=== PATIENT | female | born 1965 | race Caucasian/White ===

== ENCOUNTER 2018-05-23 10:23 | Emergency (ER) | payer BC, SELFPAY ==
[2018-05-23 10:24] VITALS: BP 160/98; PULSE 120; RESP 18; TEMP 36.8; O2SAT 95; BMI 47.0
--- NOTE | 2018-05-23 10:40 | RAD_ITS ---
STUDY: X-RAY CHEST REASON FOR EXAM: Female, 52 years old. Cough and shortness of breath TECHNIQUE: Single AP portable view of the chest. COMPARISON: None. FINDINGS: The lungs are clear and expanded. There is no demonstrated pleural abnormality. There is borderline cardiomegaly. Normal mediastinum and norris. Normal visualized pulmonary arteries. Normal visualized aortic arch and descending thoracic aorta. Normal visualized thoracic spine. Normal visualized ribs, clavicles, and shoulders. There is no demonstrated abnormality of the visualized soft tissue structures of the upper abdomen. RAD/Chest 1 View (Portable) IMPRESSION: Borderline cardiomegaly. Lungs are clear. Electronically Signed: Joe Moreno DO at 11:09 EST Tel , Service support ,
--- NOTE | 2018-05-23 10:41 | ED.VIS.GEN ---
History of Present Illness Chief Complaint: Cold Sx Detail of Chief Complaint: Onset of symptoms Saturday flulike Informant: Patient, Family, Significant Other Onset: - - Onset of symptoms Saturday. Worse today with feeling lightheaded. When asked to define lightheadedness because she denied orthostatic-like symptoms that she stated out of sorts . Context: - - None Timing: Continuous, Intermittent, - - Flulike symptoms constant since Saturday. Feeling out of sorts started today. Quality: Patient not able to quantitate, or describe her symptoms other than flulike Current Severity: Mild Maximum Severity: Moderate Worsened by: Nothing to the patient's knowledge Relieved by: Nothing Associated Symptoms: Subjective fever and respiratory symptoms Narrative: Patient is a middle-aged woman with no sniffing a past medical history. She is a non-smoker. She is a [id number] mom . She presents with rhinorrhea, congestion, postnasal drainage, sore throat, headache and nonproductive cough. She states her cough is worse at night and she feels rattling in her chest. She denies history of asthma. She does report nausea without vomiting diarrhea. She denies black or maroon stool. She denies urologic symptoms. She denies rash. She did not get a flu shot this year. Son was ill with viral-like symptoms before she was. Prior similar symptoms: No Recent Illness/Hospitalization: No Past Medical History - Allergies and Home Meds Allergies/Adverse Reactions: Allergies ibuprofen Allergy (Verified 05/23/18 10:26) Swelling clindamycin Adverse Reaction (Verified 05/23/18 10:26) Other Primary Care Physician: Tia Jalloh DO [Primary Care Provider] - Prior records reviewed: Yes Past Medical History: None Lives: Spouse/ Significant Other, With Family Smoking Status: Never smoker Alcohol: None Drugs: None Review of Systems General: Reports: Chills, Fever, Malaise, Subjective. Denies: Sweats, Weight loss Eyes: Reports: - - She denies photophobia.. Denies: Visual changes - bilaterally, Blurred Vision - bilaterally, Diplopia ENT: Reports: Rhinorrhea, Sore throat. Denies: Bilateral ear pain Cardiovascular: Reports: Palpitations. Denies: Chest pain Respiratory: Reports: Cough. Denies: Dyspnea, Sputum, Dyspnea on exertion, Orthopnea Gastrointestinal: Reports: Nausea. Denies: Abdominal pain, Vomiting, Diarrhea, Melena, Hematochezia Genitourinary: Denies: Dysuria, Hematuria, Frequency Musculoskeletal: Reports: Myalgias, Arthralgias. Denies: Neck pain - She denies neck stiffness Skin: Denies: Rash, Wounds Neurological: Reports: Headache. Denies: Weakness, Parasthesia, Numbness Endocrine: Denies: Polyuria, Polydipsia Hematologic: Denies: Easy bruising, Easy bleeding Physical Exam Vital Signs/Narrative: Vital Signs Temp Pulse Resp BP Pulse Ox 05/23/18 10:24 98.2 F 120 H 18 160/98 H 95 Inital Vital Signs reviewed: Yes General: Well nourished, Well developed, Obese, - - Patient appears ill but not toxic Head: Normocephalic, Atraumatic Eyes: Perrl, EOMI. Negative for: Pale conjunctiva, Scleral icterus ENT: Moist mucous membranes, TM's clear, Nasal congestion. Negative for: Sinus tenderness Neck: Supple, Nontender, No lymphadenopathy Cardiovascular: Regular rhythm, No murmurs, Normal S1, Normal S2, Tachycardia Respiratory: No distress, CTA bilaterally, Chest nontender Abdomen: Soft, Nontender, Nondistended, Normal bowel sounds, No masses Extremities: Nontender, No edema Skin: Normal color, No rash. Negative for: Cyanosis, Diaphoresis Neurological: Alert, Oriented x3, Cranial nerves II-XII grossly intact, Normal Strength, Normal Sensation Psychological: Normal affect Diagnostic/Tx/Re-eval Chest X-Ray - ED: 2 View, Read by ED Physician, Normal, Lungs, Mediastinum, Bony Structures, No Acute Disease PTT of 101. This was obtained because patient urinated 3 times during her ER stay and was drinking glasses of water. - Medical Decision Making With wheezing and cough in non-asthmatic will obtain chest x-ray to assess for infiltrate. She was instructed on how to use an albuterol metered-dose inhaler. We will also treat with p.o. prednisone. Differential viral syndrome, influenza, pneumonia Since chest x-ray is normal and symptoms started only a couple of days ago symptomatic treatment. Antibiotic not indicated per the CDC and the Academy of infectious disease. Patient breathing improved after albuterol. ED Disposition - Plan for ED Patient: Disposition: Home or Assisted Living Diagnosis: Acute asthmatic bronchitis Instructions: ED Bronchitis Asthmatic Referrals: Tia Jalloh, [Primary Care Provider] - 1 Week if not improving Additional Instructions: 2 puffs of the inhaler every 2 hours while awake for the next 2 days then every 2-4 hours as needed. You may be ill for another 7-10 days.
[2018-05-23] MEDS: predniSONE 20 MG Tablet 60 MG PO (11:05)
[2018-05-23 12:05] LABS: Bedside Glucose 110 mg/dL (70-110)
[2018-05-23 12:42] VITALS: BP 146/95; PULSE 103; RESP 16; O2SAT 93
--- NOTE | 2018-05-23 12:42 | ED.RN ---
DISCHARGE INSTRUCTIONS GIVEN TO AND REVIEWED WITH PATIENT, PATIENT DENIES QUESTIONS OR CONCERNS AND VOICES UNDERSTANDING OF DISCHARGE INSTRUCTIONS. PT AMBULATES OUT OF ROOM WITHOUT DIFFICULTY.
== END 2018-05-23 12:43 | disposition home or self-care (01) ==
PROVIDERS: Emergency Provider Emergency Medicine; Family Provider Internal Medicine; PCP Internal Medicine
DX: J45.909 Unspecified asthma, uncomplicated (principal)
CPT/HCPCS: 71045; 82962; 94640; 99284

== ENCOUNTER 2021-05-29 19:47 | Emergency (ER) | payer BC, SELFPAY ==
[2021-05-29 19:48] VITALS: BP 160/105; PULSE 124; RESP 18; TEMP 36.2; O2SAT 98; BMI 39.1
[2021-05-29 20:17] VITALS: BP 125/91; PULSE 112; RESP 17; O2SAT 98
--- NOTE | 2021-05-29 20:56 | EDS_ITS ---
HPI History of Present Illness Chief Complaint: Palpitations Detail of Chief Complaint: Palpitations/fast heart rate Informant: patient Onset/Context/Timing Onset: Days Context: Sudden Onset Timing: Intermittent Quality: Fast heart rate Location: Chest Current Severity: Mild Maximum Severity: Moderate Worsened by: Does not believe it is an anxiety reaction Relieved by: Nothing Associated Symptoms Associated Symptoms: Nothing Narrative Narrative: Patient is a 55-year-old woman with no significant past medical history who presents because of palpitations and fast heart rate. She not count to determine how fast her heart rate occurred. She had 2 episodes today. First 1 lasted for 30 minutes uncertain how long the second 1 lasted for. She has had other episodes this past week. She is on no prescribed medication. She did take a Benadryl for this in the past but did not take a Benadryl today. She denies herbal supplements. She denies smoking, alcohol or drug use. She has not recently been immunized. She did not contract Covid. She has no known history of cardiac disease. She denies history of VTE. She denies leg pain, swelling discoloration. She does report lightheadedness with standing. She denies black or maroon-colored stool. Prior similar symptoms: No Recent Illness/Hospitalization: No PFSH PFSH Medical History Anxiety Back pain with history of spinal surgery Kidney stones Home Medications diphenhydramine HCl [Benadryl] 25 mg PO Q6H PRN 05/29/21 [History Last Taken Unknown] Allergy/AdvReac Type Severity Reaction Status Date / Time ibuprofen Allergy Swelling Verified 05/29/21 19:51 clindamycin AdvReac Other Verified 05/29/21 19:51 Surgical History History of lithotripsy Social History (Updated 05/29/21 @ 20:[address] Collin Olmos MD) household members: spouse Smoking Status: Never smoker alcohol intake: current alcohol intake frequency: other substance use type: does not use ROS ROS ED Constitutional Constitutional ED: Denies chills, fever(s), subjective, sweats or weight loss Eyes Eyes: Denies blurry vision, change in vision or diplopia ENT ENT ED: Denies ear pain, rhinorrhea or sore throat Cardiovascular Cardiovascular: Reports palpitations and racing heartbeat; Denies chest pain, orthopnea or paroxysmal nocturnal dyspnea Respiratory/Chest Respiratory/Chest: Denies cough, dyspnea, dyspnea on exertion, orthopnea, paroxysmal nocturnal dyspnea or sputum Gastrointestinal Gastrointestinal: Denies abdominal pain, diarrhea, melena, nausea or vomiting Genitourinary Genitourinary ED: Denies dysuria, hematuria or urinary frequency Musculoskeletal Musculoskeletal: Denies arthralgias, back pain, myalgias or neck pain Integumentary Denies Abrasions or rash Neurologic Neurologic: Denies headache(s), paresthesias or weakness Psychiatric Psychiatric: Denies anxiety or depression Endocrine Endocrinology: Denies heat intolerance, polydipsia, polyphagia or polyuria EXAM Physical Exam Const Vital Signs: 05/29/21 19:48 05/29/21 20:13 05/29/21 20:17 Temperature 97.1 F L Temperature Source Temporal Pulse Rate 124 H 112 H Pulse Rate [Lying] Pulse Rate [Sitting] Pulse Rate [Standing] Respiratory Rate 18 17 Respiratory Pattern Normal Blood Pressure 160/105 H 125/91 H Blood Pressure [Lying] Blood Pressure [Sitting] Blood Pressure [Standing] Blood Pressure Mean 123 102 Blood Pressure Mean [Lying] Blood Pressure Mean [Sitting] Blood Pressure Mean [Standing] Pulse Ox 98 98 Oxygen Delivery Method Room Air Room Air 05/29/21 21:01 05/29/21 21:33 Temperature Temperature Source Pulse Rate 101 H Pulse Rate [Lying] 110 H Pulse Rate [Sitting] 122 H Pulse Rate [Standing] 122 H Respiratory Rate 15 Respiratory Pattern Blood Pressure 131/91 H Blood Pressure [Lying] 143/92 H Blood Pressure [Sitting] 139/113 H Blood Pressure [Standing] 127/100 H Blood Pressure Mean 104 Blood Pressure Mean [Lying] 109 Blood Pressure Mean [Sitting] 121 Blood Pressure Mean [Standing] 109 Pulse Ox 96 Oxygen Delivery Method Room Air Positive well nourished, well developed and obese General Appearance ED: well developed and NAD; Negative for pallor Nutritional Appearance: obese HEENT Reports TM's clear and moist mucous membranes Negative for trauma or tenderness Tympanic Membrane ED: Yes TM's clear Eyes PERRL and EOMs intact bilaterally General Eye ED: Negative for pale conjunctiva or scleral icterus Neck no lymphadenopathy, supple and no JVD Resp normal respiratory effort and clear to auscultation bilaterally Cardio regular rhythm, S1 normal heart sound, S2 normal heart sound and no murmurs Rate: tachycardic and other Other Details: Peripheral pulses are palpable and symmetric. GI normal to inspection, nondistended, normoactive bowel sounds and non-tender Palpation: soft Back/Spine no CVA tenderness Extremity normal to inspection Extremity Narrative: There is no asymmetry, swelling, discoloration, leg vein distention, palpable cords or tenderness along the distribution of the deep venous system. General Extremety ED: Negative for edema General Extremity: Negative for edema Neuro oriented x3 and CN's II-XII intact bilaterally Sensorium / Orientation: alert Psych mental status grossly normal Skin no rashes or lesions noted and no wounds General Skin Exam: Negative for jaundice or pallor MDM MDM MDM Narrative Medical decision making narrative: Patient presents with tachycardia. Since she reports orthostatic symptoms will have nurse perform orthostatic vital signs. Will obtain EKG blood work to rule out anemia assess renal function and troponin. With her not complain of dyspnea on exertion dyspnea at rest pleuritic pain no risk factors for PE D-dimer was not obtained. Doubt this to be PE since her palpitations/rapid heart rate is been intermittent lasting no longer than 30 minutes. Differential would include pots disease, sinus tachycardia of unknown etiology, myocarditis. Doubt pericarditis. Troponin is normal. This is normal with symptoms for several days. There is no need for a repeat 2-hour troponin. EKG has no changes to suggest pericarditis. Cause of her tachycardia is unknown. We will have her follow-up with her primary care physician in 3 to 5 days. Lab Data Labs: Laboratory Results - last 24 hr 05/29/21 05/29/21 20:16 20:16 WBC 8.2 RBC 5.03 Hgb 11.0 L Hct 37.5 MCV 74.6 L MCH 21.9 L MCHC 29.3 L RDW Std Deviation 46.5 H RDW Coeff of Phil 17.3 H Plt Count 438 MPV 8.8 Immature Gran % (Auto) 0.400 Neut % (Auto) 55.7 Lymph % (Auto) 27.6 [place] % (Auto) 12.4 H Eos % (Auto) 3.2 Baso % (Auto) 0.7 Absolute Neuts (auto) 4.6 Absolute Lymphs (auto) 2.27 Nucleated RBC % 0 Sodium 138 Potassium 3.9 Chloride 108 H Carbon Dioxide 28.0 Anion Gap 2 L BUN 8 Creatinine 0.78 Estim Creat Clear Calc 81.11 Est GFR (MDRD) Af Amer 98 Est GFR (MDRD) Non-Af 81 BUN/Creatinine Ratio 10.2 Glucose 117 H Calcium 9.3 Troponin I High Sens 31 EKG Initial EKG: Attestation: I personally reviewed and interpreted this EKG as follows: Interpretation: Sinus Tachycardia (Ventricular rate 116. VT interval 150 ms. QRS duration 74 ms. QT duration 306 ms. [place] is normal. Other than the sinus tachycardia the EKG is normal.) Discharge Plan Triage Chief Complaint: Palpitations ED Provider: Collin Olmos Dx/Rx/DC Orders Clinical Impression: Sinus tachycardia Instructions: ED Tachycardia: PAT Prescriptions: No Action diphenhydramine HCl [Benadryl] 25 mg Capsule 25 mg PO Q6H PRN (Reason: allergies) RF: 0 Primary Care Provider: Tia Jalloh Referrals: Tia Jalloh DO [Primary Care Provider] - 3-5 Days Disposition Disposition: Home, Self Care
--- NOTE | 2021-05-29 20:56 | EKG12_ITS ---
Test Reason : PALPITATIONS Blood Pressure : / mmHG Vent. Rate : 116 BPM Atrial Rate : 116 BPM P-R Int : 152 ms QRS Dur : 074 ms QT Int : 306 ms P-R-T Axes : 054 026 063 degrees QTc Int : 425 ms Sinus tachycardia Otherwise normal ECG Confirmed by DANIEL COURTNEY, JAYLYN ([id number]), development editor NENA MARIE ([id number]) on 06/01/2021 1:28:31 PM Referred By: MUMTAZ Confirmed By:JAYLYN SANCHEZ MD
[2021-05-29 21:01] VITALS: BP 131/91; PULSE 101; RESP 15; O2SAT 96
[2021-05-29 21:06] LABS: Absolute Lymphocyte Count 2.27 X10^3/uL (0.83-4.51); Absolute Neutrophil Count 4.6 X10^3/uL (2.0-7.7); Basophil# 0.06 X10^3/uL; Basophil% 0.7 % (0-1); Eosinophil# 0.26 X10^3/uL; Eosinophils% 3.2 % (0-5); Hematocrit 37.5 % (37-47); Lymphocyte # 2.27 X10^3/ul (0.83-4.51); Lymphocyte % 27.6 % (19-41); Mean Corp Hgb Conc 29.3 g/dL (32-36); Mean Corpuscular Hgb 21.9 pg (27.0-32.0); Mean Corpuscular Volume 74.6 fL (81-99); Mean Platelet Vol. 8.8 fl (6.2-12.0); Monocyte# 1.02 X10^3/uL; Monocyte% 12.4 % (0-10); NRBC Flagged by Analyzer 0 % (0-5); Neutrophil # 4.57 X10^3/uL (2.7-7.7); Neutrophil % 55.7 % (47-70); Platelet Count 438 K/mm3 (150-450); RBC Distribution Width CV 17.3 % (11.6-14.6); RBC Distribution Width SD 46.5 fl (35.1-43.9); Red Blood Count 5.03 M/mm3 (4.2-5.4); White Blood Count 8.2 K/mm3 (4.4-11.0)
[2021-05-29 21:19] LABS: Anion Gap 2 (5-15); BUN 8 mg/dL (7-18); BUN/Creat Ratio 10.2 RATIO (10-20); Calcium,Total 9.3 mg/dL (8.5-10.1); Chloride 108 mmol/L (98-107); Creatinine, Serum 0.78 mg/dL (0.55-1.02); EST Glomerular Filtration Rate 81 mL/min (>60); Est Glom Filt Rate - Afr Amer 98 mL/min (>60); Estimated Creatinine Clearance 81.11 ml/min; Glucose 117 mg/dL (74-106); Potassium 3.9 mmol/L (3.5-5.1); Sodium Level 138 mmol/L (136-145); Troponin-I HS 31 pg/mL (3.0-54.0)
[2021-05-29 21:33] VITALS: BP 127/100; BP 139/113; BP 143/92; PULSE 110; PULSE 122
[2021-05-29 22:47] VITALS: BP 115/85; PULSE 96; RESP 16; O2SAT 98
== END 2021-05-29 22:52 | disposition home or self-care (01) ==
PROVIDERS: Emergency Provider Emergency Medicine; PCP Internal Medicine; Visit Provider Emergency Medicine
DX: R00.0 Tachycardia, unspecified (principal); Z87.442 Personal history of urinary calculi
CPT/HCPCS: 80048; 84484; 85025; 93005; 99284

== ENCOUNTER 2021-06-26 16:45 | Outpatient (CLI) | payer BC, SELFPAY ==
[2021-06-26 17:55] LABS: Absolute Lymphocyte Count 2.36 X10^3/uL (0.83-4.51); Absolute Neutrophil Count 5.5 X10^3/uL (2.0-7.7); Basophil# 0.09 X10^3/uL; Eosinophil# 0.17 X10^3/uL; Eosinophils% 1.9 % (0-5); Hematocrit 41.7 % (37-47); Hemoglobin 11.7 g/dL (12.0-15.0); Lymphocyte # 2.36 X10^3/ul (0.83-4.51); Lymphocyte % 26.5 % (19-41); Mean Corp Hgb Conc 28.1 g/dL (32-36); Mean Corpuscular Hgb 20.9 pg (27.0-32.0); Mean Corpuscular Volume 74.3 fL (81-99); Mean Platelet Vol. 8.9 fl (6.2-12.0); Monocyte# 0.82 X10^3/uL; Monocyte% 9.2 % (0-10); NRBC Flagged by Analyzer 0 % (0-5); Neutrophil # 5.45 X10^3/uL (2.7-7.7); Neutrophil % 61.1 % (47-70); Platelet Count 497 K/mm3 (150-450); RBC Distribution Width CV 17.3 % (11.6-14.6); Red Blood Count 5.61 M/mm3 (4.2-5.4); White Blood Count 8.9 K/mm3 (4.4-11.0)
[2021-06-26 18:23] LABS: Vitamin B12 434 pg/mL (211-911)
[2021-06-26 18:38] LABS: ALB/GLOB Ratio 0.8 RATIO (0.9-2.4); AST(SGOT) 21 U/L (15-37); Alanine Aminotransfer ALT/SGPT 25 U/L (13-56); Albumin, Serum 3.6 g/dL (3.2-5.0); Alkaline Phosphatase 113 U/L (45-117); Anion Gap 7 (5-15); BUN 6 mg/dL (7-18); BUN/Creat Ratio 7.7 RATIO (10-20); Calcium,Total 9.3 mg/dL (8.5-10.1); Chloride 106 mmol/L (98-107); Creatinine, Serum 0.78 mg/dL (0.55-1.02); EST Glomerular Filtration Rate 82 mL/min (>60); Est Glom Filt Rate - Afr Amer 100 mL/min (>60); Ferritin 17 ng/mL (8-252); Globulin 4.8 g/dL (2.2-4.2); Glucose 99 mg/dL (74-106); Iron 22 ug/dL (50-170); Iron Binding Capacity,Total 412 ug/dL (250-450); Magnesium 2.1 mg/dL (1.6-2.6); Protein, Total 8.4 g/dL (6.4-8.2); Sodium Level 138 mmol/L (136-145); Thyroid Stim Hormone (TSH) 1.19 uIU/mL (0.358-3.74)
== END 2021-06-26 23:59 | disposition home or self-care (01) ==
PROVIDERS: PCP Internal Medicine; Visit Provider Family Medicine
DX: R00.0 Tachycardia, unspecified (principal); D64.9 Anemia, unspecified
CPT/HCPCS: 36415; 80053; 82607; 82728; 82746; 83540; 83550; 83735; 84443; 85025

== ENCOUNTER 2021-07-11 14:11 | Outpatient (CLI) | payer BC, SELFPAY ==
[2021-07-14 11:27] LABS: Fats, Neutral Normal (.); Fats, Total Normal (.)
== END 2021-07-11 23:59 | disposition home or self-care (01) ==
LOC: LABSPEC 14:13
PROVIDERS: PCP Family Medicine; Referring Provider Family Medicine; Visit Provider Family Medicine
DX: R19.7 Diarrhea, unspecified (principal)
CPT/HCPCS: 82705; 83630; 87177; 87209; 87493; 87506

== ENCOUNTER → 2021-07-18 | Outpatient (CLI) | payer BC, SELFPAY ==
[2021-07-18 15:07] LABS: Absolute Lymphocyte Count 2.35 X10^3/uL (0.83-4.51); Absolute Neutrophil Count 3.8 X10^3/uL (2.0-7.7); Basophil# 0.07 X10^3/uL; Eosinophil# 0.16 X10^3/uL; Eosinophils% 2.3 % (0-5); Hematocrit 37.8 % (37-47); Hemoglobin 10.9 g/dL (12.0-15.0); Lymphocyte # 2.35 X10^3/ul (0.83-4.51); Lymphocyte % 33.1 % (19-41); Mean Corp Hgb Conc 28.8 g/dL (32-36); Mean Corpuscular Hgb 21.5 pg (27.0-32.0); Mean Corpuscular Volume 74.4 fL (81-99); Monocyte# 0.68 X10^3/uL; Monocyte% 9.6 % (0-10); NRBC Flagged by Analyzer 0 % (0-5); Neutrophil % 53.6 % (47-70); Platelet Count 422 K/mm3 (150-450); RBC Distribution Width CV 17.7 % (11.6-14.6); RBC Distribution Width SD 46.8 fl (35.1-43.9); Red Blood Count 5.08 M/mm3 (4.2-5.4); White Blood Count 7.1 K/mm3 (4.4-11.0)
[2021-07-18 15:36] LABS: ALB/GLOB Ratio 0.7 RATIO (0.9-2.4); AST(SGOT) 18 U/L (15-37); Alanine Aminotransfer ALT/SGPT 22 U/L (13-56); Albumin, Serum 3.1 g/dL (3.2-5.0); Alkaline Phosphatase 103 U/L (45-117); Anion Gap 4 (5-15); BUN 7 mg/dL (7-18); BUN/Creat Ratio 9.2 RATIO (10-20); Calcium,Total 8.7 mg/dL (8.5-10.1); Chloride 110 mmol/L (98-107); Creatinine, Serum 0.76 mg/dL (0.55-1.02); EST Glomerular Filtration Rate 84 mL/min (>60); Est Glom Filt Rate - Afr Amer 101 mL/min (>60); Ferritin 14 ng/mL (8-252); Globulin 4.5 g/dL (2.2-4.2); Glucose 136 mg/dL (74-106); Iron 16 ug/dL (50-170); Iron Binding Capacity,Total 347 ug/dL (250-450); Magnesium 1.8 mg/dL (1.6-2.6); Potassium 3.9 mmol/L (3.5-5.1); Protein, Total 7.6 g/dL (6.4-8.2); Sodium Level 141 mmol/L (136-145)
== END | disposition home or self-care (01) ==
LOC: MFPLAB 14:00
PROVIDERS: PCP Family Medicine; Visit Provider Family Medicine
DX: D50.9 Iron deficiency anemia, unspecified (principal); R19.7 Diarrhea, unspecified
CPT/HCPCS: 36415; 80053; 82728; 83540; 83550; 83735; 85025

== ENCOUNTER 2021-08-23 06:10 | Day surgery (SDC) | payer BC, SELFPAY ==
--- NOTE | 2021-08-23 | COLBX_PTH ---
PATIENT: REBECCA XIONG LOC: EN U#:[id number] AGE/SX: 55/F ROOM: RE08/23/[address]: Dr. Pricila Kendrick MD : 1965 BED: DIS: 08/23/2021 SPEC #: [id number] RECD: 08/23/21 11:59 STATUS: ROSIE KIMBERLYSaud #: [id number] SYED: 08/23/21 00:[address]: Pricila Kendrick DEPT: SURGICAL PATHOLOGY RECD BY: Berto Cohen ENTERED: 08/23/21 11:59 SP TYPE: COLON BX OT DR: Dr. Tate Cordova MD Tissues: COLON BIOPSY Procedures: Surgery Specimen Level IV HEADER OPERATION: Colonoscopy with biopsy (MAC) PRE-OP DIAGNOSIS: Diarrhea, abdominal pain TISSUE SUBMITTED: Random colon biopsy MICROSCOPIC DIAGNOSIS Colon, random biopsy: Moderate chronic active colitis. See microscopic description and comment. SJ:balaji 08/24/2021 COMMENT Correlation with clinical, endoscopic findings and appropriate follow up are necessary. This case was reviewed and diagnosis discussed with Dr. Kendrick on 08/25/2021. MICROSCOPIC DESCRIPTION Slides are reviewed. The specimen shows fragments of colonic mucosa with focal ulceration, mild glandular distortion, cryptitis and crypt abscesses. Granulomas are not seen. No evidence of dysplasia. GROSS DESCRIPTION Received in fixative is one container labeled with the patient's name and designated random colon biopsy. The specimen consists of multiple irregular fragments of light wright soft tissue that in aggregate measure 0.8 x 0.6 x 0.1 cm. The specimen is totally submitted in one cassette. / SJ:balaji 08/23/2021 TC:2 [facility]: [id number]
[2021-08-23 06:42] VITALS: BP 116/88; PULSE 109; RESP 16; TEMP 36.2; O2SAT 96; BMI 46.3
[2021-08-23 06:50] LABS: Internal QC Validated? YES +Cl - CLEAR BKGD; Pregnancy, Urine Negative Negative
[2021-08-23] MEDS: Lactated Ringers 1,000 ML 30 ML IV (06:54)
--- NOTE | 2021-08-23 07:10 | HP.PCM_ITS ---
HPI - General HPI Narrative REBECCA XIONG, is a 55 F who presents for screening colonoscopy. Patient never had a previous colonoscopy. Denies any family history of colon cancer. PFSH Medical History (Updated 08/21/21 @ 12:00 by Siomara Banks) Anemia Anxiety History of irregular heartbeat Hx of diarrhea Kidney stones Non-smoker Shortness of breath on exertion Wears glasses Home Medications diphenhydramine HCl [Benadryl] 25 mg PO Q6H PRN 05/29/21 [History Last Taken Unknown] buspirone 5 mg tablet 7.5 mg PO BID tab 07/25/21 [History Last Taken 08/23/21] Allergy/AdvReac Type Severity Reaction Status Date / Time ibuprofen Allergy Facial Verified 08/23/21 06:40 Swelling clindamycin AdvReac Thrush Verified 08/23/21 06:40 Family History (Updated 07/25/21 @ 09:13 by Mimi Saturday) Mother Hypertension Arthritis Surgical History (Updated 07/25/21 @ 09:11 by Mimi Saturday) History of back surgery History of lithotripsy Social History (Updated 07/25/21 @ 09:14 by Mimi Saturday) household members: spouse Smoking Status: Never smoker alcohol intake: current alcohol intake frequency: other details: social substance use type: does not use Past Medical/Surgical History Planned Operation Planned Operative Procedure/s: CSCOPE Previous Hospitalizations/Surgeries HX Hospitalizations: No Any Problems With Anesthesia: No You/Your Family Experience Fever (Hyperthermia) With Anes: No Cholinesterase deficiency: No Cardiovascular Hx of Irregular Heartbeat and/or Afib: No Hx Heart Attack: No Hx Congestive Heart Failure: No Hx Hypertension: No Hx Internal Defibrillator: No Hx Pacemaker: No Respiratory Hx Chronic Obstructive Pulmonary Disease (COPD): No Hx Asthma: No Hx Emphysema: No Hx Sleep Apnea: No Hx Respiratory Tract Infection/Cold (presently): No Do You Snore Loudly (louder than talking or can be heard): Yes Do You Often Feel Tired/ Fatigued/ Sleepy [place]ring Daytime?: No Has Anyone Observed You Stop Breathing During Sleep?: No Result (for STOP score): Negative Smoking Status: Never smoker Gastrointestinal Hx Gastroesophageal Reflux: No Hx Ulcer: No Special diet followed at home: Yes Neurological Hx Seizures: No Hx Multiple Sclerosis: No Hx Parkinson's Disease: No Hx Head/Neck Injury: No Hx Headaches: No Hx Back Injury/Pain: Yes Does patient have nerve stimulator: No Reproduction : No Psycho/Social Hx Anxiety: No Hx Depression: No Miscellaneous Recent Exposure to Contagious Disease: No Allergies ibuprofen Allergy (Verified 08/23/21 06:40) Facial Swelling clindamycin Adverse Reaction (Verified 08/23/21 06:40) Thrush Discharge Is Pt Admitted From a Care Home, or a Assisted: No After D/C, Where Do you Plan to Go: Return Home Vital Signs Vital Signs Vital Signs: 08/23/21 06:42 Temperature 97.1 F L Temperature Source Temporal Pulse Rate 109 H Respiratory Rate 16 Respiratory Pattern Normal Blood Pressure 116/88 H Blood Pressure Mean 97 Blood Pressure Source Monitor Blood Pressure Position Semi-Fowlers Blood Pressure Location Right Arm Pulse Ox 96 Oxygen Delivery Method Room Air Weight Weight: 295 lb 6.711 oz Body Mass Index (BMI) 46.3 Surgery Risks - Colonoscopy Risks Include but are not Limited To: Risks include but are not limited to: Bleeding, perforation requiring further surgery, inability to complete colonoscopy requiring barium enema.
--- NOTE | 2021-08-23 07:17 | PCM.HP.BLA ---
History and Physical Date of Admission: 08/23/21 Date of Service: 07/25/21 MR#:[id number]:[id number]: REBECCA XIONGep #:[id number]:[id number] Provider:Sally Lynn/Sex: 55/F [facility] Int[facility] Vital Signs 07/25/21 09:14 Height 5 ft 7 in Weight: 301 lb 1 oz BMI 47.1 BP 137/87 H Blood Pressure Location Rt brachial Position Sitting Respiration 17 Pulse 105 H Pulse Source Monitor Temp 97.7 F L Temp Source Temporal Pulse Oximetry (%) 97 Oxygen Delivery Method room air Intake Visit Reasons: COLONOSCOPY; ABDOMINAL PAIN Chief Complaint: Colonoscopy; Abdominal Pain Sample Preparation Supervisor Required: No Is patient in pain?: No Allergies ibuprofen Allergy (Verified 07/25/21 09:18) Facial Swelling clindamycin Adverse Reaction (Verified 07/25/21 09:18) Thrush Medications diphenhydramine HCl [Benadryl] 25 mg PO Q6H PRN 05/29/21 [History Confirmed 05/29/21] buspirone 5 mg tablet 7.5 mg PO BID tab 07/25/21 [History Confirmed 07/25/21] PFSH Medical History (Updated 07/25/21 @ 09:11 by Mimi Saturday) Anemia Anxiety Back pain with history of spinal surgery Kidney stones Surgical History (Updated 07/25/21 @ 09:11 by Mimi Saturday) History of back surgery History of lithotripsy Family History (Updated 07/25/21 @ 09:13 by Mimi Saturday) Mother Hypertension Arthritis Social History (Updated 07/25/21 @ 09:14 by Mimi Saturday) household members: spouse Smoking Status: Never smoker alcohol intake: current alcohol intake frequency: other details: social substance use type: does not use HPI HPI HPI: REBECCA XIONG, is a 55 F who presents to the office today for diarrhea/abdominal pain. Patient states in May started getting increased gas/diarrhea and bloating especially after eating. Patient denies ever having previous endoscopy. Patient denies any family history of colon cancer. Patient has bowel movement daily denies any blood question whether she may have hemorrhoids. Patient did have stool studies for the diarrhea which were negative for enteric pathogens and C. difficile did have positive fecal leukoesterase. Patient denies any reflux symptoms. ROS General General: No weight change, appetite, fatigue, colon cancer or breast cancer HEENT HEENT: No difficulty swallowing, eye injury, eye surgery, swollen glands or hoarseness Endo Endocrine: No thyroid disease, diabetes mellitus, thyroid cancer, Hair loss, heat intolerance or cold intolerance Skin Skin: No rash or changing moles Musc Musculoskeletal: Yes arthritis; No back problems, rheumatoid arthritis, gout or joint pain Cardio Cardiovascular: No murmur, pacemaker, heart disease, atrial fibrillation, high blood pressure, heart attack, heart stent, palpitations, shortness of breat with exertion or chest pain Psych Psychiatric: Yes anxiety; No depression or hearing voices Resp Respiratory: No shortness of breath, No sleep apnea, No cough, No COPD, No asthma, No emphysema and No wheezing Gastro Gastrointestinal: No abdominal pain, No nausea or vomiting, Yes diarrhea, No constipation, No blood in stool, No acid reflux, Yes hemorrhoids, No ulcers, No gallbladder problem and No black,tarry stools [place] Hematologic: No blood thinners, No blood disorders, No bleeding, Yes anemia and No blood clots Neuro Neurologic: No abnormal speech and No confusion Exam Const General: cooperative, healthy appearing, comfortable and no acute distress Neck Neck: normal visual inspection Resp Effort & Inspection: normal respiratory effort Cardio Rate: regular rate GI Inspection: non-distended Palpation: soft, no guarding and nontender Skin General: no rashes or lesions noted Neuro General: patient oriented x3 Psych Affect: normal affect Assessment and Plan Assessment and Plan (1) Diarrhea: Status: Acute (2) Abdominal pain: Status: Acute Plan - Dr. Pricila Kendrick MD: Patient did have stool studies shows positive fecal leukoesterase, negative enteric pathogen/C. difficile, O&P pending I have discussed the above with the patient. I have offered the patient colonoscopy for evaluation-we will plan for random biopsies due to the diarrhea. I have explained the risks/benefits of the procedure and described the procedure. I have discussed the risks with the patient, including but not limited to: infection, bleeding, perforation of the GI tract requiring emergency surgery, inability to complete the procedure, injury to any internal organs, complications of anesthesia, etc. - the patient understands and agrees to proceed. I have answered all the patient's questions to the patient's satisfaction and the patient has no further questions. The patient has been given instructions for the colon cleansing preparation. 1 day of clears, MiraLAX Dulcolax split prep. Pricila Kendrick M.D. Pager: [phone] [facility] [address] [place] [address], [facility] [address] [place] [address] Office: [phone] Coding Level of Care Code Off vis,new,level 4 Diagnoses Diarrhea R19.7 Abdominal pain R10.9 07/26/21 1628<Electronically signed by Pricila Kendrick MD>Date Pricila Kendrick MD
[2021-08-23 08:00] VITALS: BP 116/88; BP 116/92; PULSE 108; RESP 16; TEMP 36.3; O2SAT 92
--- NOTE | 2021-08-23 08:04 | OP.COLON_ITS ---
Patient Name: Sergio Quiros Procedure Date: 08/23/2021 7:14 AM Date of : 1965 Age: 55 Procedure: Colonoscopy Indications: Chronic diarrhea Providers: Pricila Kendrick MD Referring MD: Tate Cordova Medicines: Monitored Anesthesia Care Patient Profile: This is a 55 year old female. Last Colonoscopy: none. The patient's first colonoscopy is today. Complications: No immediate complications. Procedure: Pre-Anesthesia Assessment: - Prior to the procedure, a History and Physical was performed, and patient medications and allergies were reviewed. The patient's tolerance of previous anesthesia was also reviewed. The risks and benefits of the procedure and the sedation options and risks were discussed with the patient. All questions were answered, and informed consent was obtained. Prior Anticoagulants: The patient has taken no previous anticoagulant or antiplatelet agents. ASA Grade Assessment: Per anesthesia. After reviewing the risks and benefits, the patient was deemed in satisfactory condition to undergo the procedure. After I obtained informed consent, the scope was passed under direct vision. Throughout the procedure, the patient's blood pressure, pulse, and oxygen saturations were monitored continuously. The colonoscope was introduced through the anus and advanced to the cecum, identified by the appendiceal orifice, ileocecal valve and palpation. The colonoscopy was performed without difficulty. The patient tolerated the procedure well. The quality of the bowel preparation was good. Scope In: 7:36:50 AM Scope Withdrawal Time 0 hours 7 minutes 15 seconds Scope Out: 7:55:39 AM Total Procedure Duration Time 0 hours 18 minutes 49 seconds Findings: The perianal and digital rectal examinations were normal. Diffuse moderate inflammation characterized by erythema and friability was found in the entire colon. Three biopsies were obtained with cold forceps for histology randomly in the sigmoid colon, in the transverse colon and in the ascending colon. No additional abnormalities were found on retroflexion. Impression: - Diffuse moderate inflammation was found in the entire examined colon secondary to colitis. - Three biopsies were obtained in the sigmoid colon, in the transverse colon and in the ascending colon. Recommendation: - Discharge patient to home. - Resume previous diet. - Continue present medications. - Await pathology results. - Repeat colonoscopy for surveillance based on pathology results. - Use Entocort EC (budesonide) 9 mg PO one time per day. Procedure Code(s): --- Professional --- 72345, Colonoscopy, flexible; with biopsy, single or multiple Diagnosis Code(s): --- Professional --- K52.9, Noninfective gastroenteritis and colitis, unspecified CPT copyright 2017 [employer]. All rights reserved. The codes documented in this report are preliminary and upon medical physicist review may be revised to meet current compliance requirements. MD Pricila Payne MD 08/23/2021 8:03:36 AM This report has been signed electronically. Number of Addenda: 0 Note Initiated On: 08/23/2021 7:14 AM
[2021-08-23 08:05] VITALS: BP 116/88; BP 131/99; PULSE 105; RESP 16; O2SAT 93
--- NOTE | 2021-08-23 08:05 | OP.CCLET_ITS ---
08/23/2021 Tate Cordova [address] [place] [address] Re : Colonoscopy procedure for Sergio Quiros Dear Dr. Cordova This procedure was performed on Monday, August 23, 2021. My impressions and recommendations are as follows: Impressions : - Diffuse moderate inflammation was found in the entire examined colon secondary to colitis. - Three biopsies were obtained in the sigmoid colon, in the transverse colon and in the ascending colon. Recommendations : - Discharge patient to home. - Resume previous diet. - Continue present medications. - Await pathology results. - Repeat colonoscopy for surveillance based on pathology results. - Use Entocort EC (budesonide) 9 mg PO one time per day. My findings are described in the full procedure note, which is enclosed. If I can be of further assistance, please feel free to contact me at Doctor phone number(s): , Work: . Sincerely, MD Pricila Payne MD 08/23/2021 8:03:36 AM This report has been signed electronically.
[2021-08-23 08:10] VITALS: BP 116/88; BP 129/96; PULSE 96; RESP 16; O2SAT 93
[2021-08-23 08:15] VITALS: BP 116/88; BP 131/90; PULSE 90; RESP 16; TEMP 36.4; O2SAT 94
[2021-08-23 08:37] VITALS: BP 116/88
== END 2021-08-23 08:59 | disposition home or self-care (01) ==
LOC: EN 06:10 → AC 06:12
PROVIDERS: Anesthesiology; PCP Family Medicine; Referring Provider Family Medicine; Visit Provider Surgery
PROC: 0DJD8ZZ Inspection of Lower Intestinal Tract, Via Natural or Artificial Opening Endoscopic (ICD-10-PCS; CPT 45378; principal; 2021-08-23 07:25)
DX: K52.9 Noninfective gastroenteritis and colitis, unspecified (principal); Z87.442 Personal history of urinary calculi
CPT/HCPCS: 45380; 81025; 87493; 88305; J7120; J2405

== ENCOUNTER → 2021-09-04 | Outpatient (CLI) | payer BC, SELFPAY ==
--- NOTE | 2021-09-04 14:29 | CT_ITS ---
INDICATION: Crohn''s disease EXAMINATION: CT ABDOMEN AND PELVIS WITH CONTRAST - CT Abdomen And Pelvis W/ Contrast Injection TECHNIQUE: Helically acquired images were obtained of the abdomen and pelvis following IV contrast. A radiation dose optimization technique was used for this scan. IV Contrast dosage and agent: 100 cc Isovue-370 Oral contrast: Yes COMPARISON: 05/31/2016 FINDINGS: LOWER CHEST: Lung bases are clear. No cardiomegaly or pericardial effusion. LIVER: Homogeneous. No focal mass. GALLBLADDER AND BILIARY TREE: No calcified gallstones. Gallbladder distended transversely 6.8 cm, no wall edema. No intra- or extrahepatic biliary ductal dilation. PANCREAS: No focal cystic or solid mass. SPLEEN: Normal size without focal cystic or solid mass. ADRENAL GLANDS: No nodules. KIDNEYS AND URETERS: Nonobstructing left nephrolithiasis. No hydronephrosis. PERITONEUM: No ascites or free air. BOWEL: Normal appendix. No stomach or bowel distension. No focal inflammatory bowel wall changes. Normal appearance of the terminal ileum. LYMPH NODES: No enlarged mesenteric or retroperitoneal lymph nodes. VESSELS: Aorta is non-dilated. URINARY BLADDER: Minimally distended. REPRODUCTIVE ORGANS: No pelvic masses. ABDOMINAL WALL: Small fat-containing umbilical hernia. BONES: No acute or aggressive abnormality. CT/Abdomen/Pelvis WITH Contrast IMPRESSION: No acute findings in the abdomen or pelvis. No inflammatory bowel wall changes. Nonobstructing left nephrolithiasis. Nonspecific gallbladder distention. Electronically Signed: Kimani Soto MD at 0:53 EDT ,
== END | disposition home or self-care (01) ==
LOC: CT 14:29
PROVIDERS: PCP Family Medicine; Referring Provider Surgery; Visit Provider Surgery
DX: K50.90 Crohn's disease, unspecified, without complications (principal)
CPT/HCPCS: 74177; Q9967

== ENCOUNTER → 2021-10-12 | Outpatient (CLI) | payer BC, SELFPAY ==
[2021-10-12 12:49] LABS: Erythrocyte Sedimentation Rate 30 mm/hr (0-30)
[2021-10-12 12:54] LABS: Absolute Neutrophil Count 11.7 X10^3/uL (2.0-7.7); Basophil# 0.08 X10^3/uL; Basophil% 0.5 % (0-1); Eosinophil# 0.08 X10^3/uL; Eosinophils% 0.5 % (0-5); Hematocrit 45.4 % (37-47); Hemoglobin 13.8 g/dL (12.0-15.0); Lymphocyte % 22.6 % (19-41); Mean Corp Hgb Conc 30.4 g/dL (32-36); Mean Corpuscular Hgb 23.7 pg (27.0-32.0); Mean Platelet Vol. 9.3 fl (6.2-12.0); Monocyte# 1.07 X10^3/uL; Monocyte% 6.4 % (0-10); NRBC Flagged by Analyzer 0 % (0-5); Neutrophil # 11.66 X10^3/uL (2.7-7.7); Neutrophil % 69.4 % (47-70); POSITIVE MORPHOLOGY YES; Platelet Count 372 K/mm3 (150-450); RBC Distribution Width CV 20.6 % (11.6-14.6); RBC Distribution Width SD 55.4 fl (35.1-43.9); Red Blood Count 5.82 M/mm3 (4.2-5.4); White Blood Count 16.8 K/mm3 (4.4-11.0)
[2021-10-12 13:08] LABS: Differential Indicated SCAN CRITERIA MET
[2021-10-12 13:19] LABS: ALB/GLOB Ratio 0.8 RATIO (0.9-2.4); AST(SGOT) 9 U/L (15-37); Alanine Aminotransfer ALT/SGPT 25 U/L (13-56); Albumin, Serum 3.2 g/dL (3.2-5.0); Alkaline Phosphatase 68 U/L (45-117); Anion Gap 9 (5-15); BUN 18 mg/dL (7-18); BUN/Creat Ratio 16.1 RATIO (10-20); Calcium,Total 9.6 mg/dL (8.5-10.1); Chloride 105 mmol/L (98-107); Creatinine, Serum 1.12 mg/dL (0.55-1.02); EST Glomerular Filtration Rate 54 mL/min (>60); Est Glom Filt Rate - Afr Amer 65 mL/min (>60); Globulin 3.9 g/dL (2.2-4.2); Glucose 166 mg/dL (74-106); LDH 177 U/L (84-246); Potassium 3.6 mmol/L (3.5-5.1); Protein, Total 7.1 g/dL (6.4-8.2); Sodium Level 139 mmol/L (136-145)
[2021-10-12 13:23] LABS: Anisocytosis 2+; Differential Comment SCANNED; Macrocytosis 1+; Microcytosis 1+
[2021-10-13 13:07] LABS: Anti-Centromere B Ab <0.2 AI (0.0-0.9); Anti-Chromatin <0.2 AI (0.0-0.9); Anti-Jo <0.2 AI (0.0-0.9); Anti-Scleroderma-70 AB <0.2 AI (0.0-0.9); RNP Ab <0.2 AI (0.0-0.9); SJOGREN'S Anti-SS-A test < 0.2 AI (0.0-0.9); SJOGREN'S Anti-SS-B test < 0.2 AI (0.0-0.9); Smith Ab <0.2 AI (0.0-0.9)
[2021-10-13 17:07] LABS: Endomysial Antibody IgA Positive (Negative)
[2021-10-13 20:20] LABS: Immunoglobulin A 192 mg/dL (87-352); t-Transglutaminase IgA 11 U/mL (0-3)
[2021-10-15 00:01] LABS: Anti-dsDNA Ab <1 IU/mL (0-9)
[2021-10-15 16:08] LABS: Cytoplasmic Ab (C-ANCA) <1:20 titer (Neg:<1:20); Immunoglobulin A 180 mg/dL (87-352); Immunoglobulin E 396 IU/mL (6-495); Immunoglobulin G 847 mg/dL (586-1602); Immunoglobulin M 156 mg/dL (26-217)
[2021-10-15 21:42] LABS: Perinuclear Ab (P-ANCA) <1:20 titer (Neg:<1:20)
== END | disposition home or self-care (01) ==
LOC: LAB 11:16
PROVIDERS: PCP Family Medicine; Visit Provider Nurse Practitioner Adult Health
DX: K50.90 Crohn's disease, unspecified, without complications (principal)
CPT/HCPCS: 36415; 80053; 82784; 82785; 83516; 83615; 85025; 85652; 86140; 86225; 86235; 86255; 86256

== ENCOUNTER → 2021-10-16 | Outpatient (CLI) | payer BC, SELFPAY | END | disposition home or self-care (01) | PROVIDERS: PCP Family Medicine; Referring Provider Internal Medicine Gastroenterology; Visit Provider Internal Medicine Gastroenterology | DX: K50.90 Crohn's disease, unspecified, without complications (principal) | CPT/HCPCS: 36415 ==

== ENCOUNTER → 2021-10-20 | Outpatient (CLI) | payer BC, SELFPAY ==
[2021-10-20 14:45] LABS: Absolute Lymphocyte Count 1.26 X10^3/uL (0.83-4.51); Absolute Neutrophil Count 10.1 X10^3/uL (2.0-7.7); Basophil# 0.04 X10^3/uL; Basophil% 0.3 % (0-1); Eosinophil# 0.01 X10^3/uL; Eosinophils% 0.1 % (0-5); Hematocrit 46.8 % (37-47); Hemoglobin 13.5 g/dL (12.0-15.0); Lymphocyte # 1.26 X10^3/ul (0.83-4.51); Lymphocyte % 10.7 % (19-41); Mean Corp Hgb Conc 28.8 g/dL (32-36); Mean Corpuscular Hgb 23.6 pg (27.0-32.0); Mean Corpuscular Volume 81.7 fL (81-99); Mean Platelet Vol. 9.6 fl (6.2-12.0); Monocyte# 0.31 X10^3/uL; Monocyte% 2.6 % (0-10); NRBC Flagged by Analyzer 0 % (0-5); Neutrophil # 10.12 X10^3/uL (2.7-7.7); Neutrophil % 85.7 % (47-70); POSITIVE MORPHOLOGY YES; Platelet Count 269 K/mm3 (150-450); RBC Distribution Width CV 20.9 % (11.6-14.6); RBC Distribution Width SD 59.3 fl (35.1-43.9); Red Blood Count 5.73 M/mm3 (4.2-5.4); White Blood Count 11.8 K/mm3 (4.4-11.0)
[2021-10-20 14:46] LABS: Differential Indicated SCAN CRITERIA MET
[2021-10-20 15:10] LABS: Anisocytosis 1+; Platelet Estimate ADEQUATE (ADEQ); Red Cell Morphology N CHROM NORMAL (NORM C&C)
[2021-10-20 15:21] LABS: Anion Gap 9 (5-15); BUN 12 mg/dL (7-18); BUN/Creat Ratio 13.4 RATIO (10-20); Calcium,Total 9.5 mg/dL (8.5-10.1); Chloride 105 mmol/L (98-107); EST Glomerular Filtration Rate 70 mL/min (>60); Est Glom Filt Rate - Afr Amer 84 mL/min (>60); Ferritin 21 ng/mL (8-252); Glucose 158 mg/dL (74-106); Iron 28 ug/dL (50-170); Iron Binding Capacity,Total 473 ug/dL (250-450); Potassium 3.9 mmol/L (3.5-5.1); Sodium Level 140 mmol/L (136-145)
[2021-10-20 15:35] LABS: Hemoglobin A1c 6.7 % (3.8-5.6)
== END | disposition home or self-care (01) ==
LOC: MFPLAB 14:19
PROVIDERS: PCP Family Medicine; Referring Provider Family Medicine; Visit Provider Family Medicine
DX: D50.9 Iron deficiency anemia, unspecified (principal); R94.4 Abnormal results of kidney function studies; R73.09 Other abnormal glucose
CPT/HCPCS: 36415; 80048; 82728; 83036; 83540; 83550; 85025

== ENCOUNTER → 2022-02-05 | Outpatient (CLI) | payer BC, SELFPAY ==
[2022-02-05 12:16] LABS: Erythrocyte Sedimentation Rate 35 mm/hr (0-30)
[2022-02-05 12:17] LABS: Absolute Lymphocyte Count 3.55 X10^3/uL (0.83-4.51); Absolute Neutrophil Count 6.7 X10^3/uL (2.0-7.7); Basophil# 0.09 X10^3/uL; Basophil% 0.8 % (0-1); Eosinophil# 0.27 X10^3/uL; Eosinophils% 2.3 % (0-5); Hematocrit 45.4 % (37-47); Lymphocyte # 3.55 X10^3/ul (0.83-4.51); Lymphocyte % 30.4 % (19-41); Mean Corp Hgb Conc 30.8 g/dL (32-36); Mean Corpuscular Hgb 27.8 pg (27.0-32.0); Mean Corpuscular Volume 90.3 fL (81-99); Mean Platelet Vol. 8.8 fl (6.2-12.0); Monocyte# 0.97 X10^3/uL; Monocyte% 8.3 % (0-10); NRBC Flagged by Analyzer 0 % (0-5); Neutrophil # 6.74 X10^3/uL (2.7-7.7); Neutrophil % 57.7 % (47-70); Platelet Count 372 K/mm3 (150-450); RBC Distribution Width CV 14.2 % (11.6-14.6); RBC Distribution Width SD 47.1 fl (35.1-43.9); Red Blood Count 5.03 M/mm3 (4.2-5.4); White Blood Count 11.7 K/mm3 (4.4-11.0)
[2022-02-05 12:37] LABS: ALB/GLOB Ratio 0.8 RATIO (0.9-2.4); AST(SGOT) 11 U/L (15-37); Alanine Aminotransfer ALT/SGPT 21 U/L (13-56); Albumin, Serum 3.1 g/dL (3.2-5.0); Alkaline Phosphatase 83 U/L (45-117); Anion Gap 5 (5-15); BUN 12 mg/dL (7-18); BUN/Creat Ratio 14.7 RATIO (10-20); Chloride 106 mmol/L (98-107); Creatinine, Serum 0.81 mg/dL (0.55-1.02); EST Glomerular Filtration Rate 78 mL/min (>60); Est Glom Filt Rate - Afr Amer 94 mL/min (>60); Glucose 135 mg/dL (74-106); Potassium 3.8 mmol/L (3.5-5.1); Protein, Total 7.1 g/dL (6.4-8.2); Sodium Level 140 mmol/L (136-145)
== END | disposition home or self-care (01) ==
PROVIDERS: PCP Family Medicine; Referring Provider Internal Medicine Gastroenterology; Visit Provider Internal Medicine Gastroenterology
DX: K52.9 Noninfective gastroenteritis and colitis, unspecified (principal)
CPT/HCPCS: 80053; 85025; 85652; 86140

== ENCOUNTER → 2022-03-29 | Outpatient (CLI) | payer BC, SELFPAY ==
[2022-03-29 14:37] LABS: Erythrocyte Sedimentation Rate 34 mm/hr (0-30)
== END | disposition home or self-care (01) ==
LOC: RAD 13:50
PROVIDERS: PCP Family Medicine; Referring Provider Internal Medicine Gastroenterology; Visit Provider Internal Medicine Gastroenterology
DX: K52.9 Noninfective gastroenteritis and colitis, unspecified (principal)
CPT/HCPCS: 36415; 85652; 86140

== ENCOUNTER → 2022-04-12 | Outpatient (CLI) | payer BC, SELFPAY ==
[2022-04-12 17:34] LABS: Absolute Lymphocyte Count 2.07 X10^3/uL (0.83-4.51); Absolute Neutrophil Count 5.8 X10^3/uL (2.0-7.7); Basophil# 0.09 X10^3/uL; Eosinophil# 0.31 X10^3/uL; Eosinophils% 3.4 % (0-5); Hematocrit 46.6 % (37-47); Hemoglobin 14.3 g/dL (12.0-15.0); Lymphocyte # 2.07 X10^3/ul (0.83-4.51); Lymphocyte % 22.6 % (19-41); Mean Corp Hgb Conc 30.7 g/dL (32-36); Mean Corpuscular Hgb 27.7 pg (27.0-32.0); Mean Corpuscular Volume 90.3 fL (81-99); Mean Platelet Vol. 9.2 fl (6.2-12.0); Monocyte# 0.82 X10^3/uL; NRBC Flagged by Analyzer 0 % (0-5); Neutrophil # 5.82 X10^3/uL (2.7-7.7); Neutrophil % 63.7 % (47-70); Platelet Count 363 K/mm3 (150-450); RBC Distribution Width CV 14.3 % (11.6-14.6); RBC Distribution Width SD 47.5 fl (35.1-43.9); Red Blood Count 5.16 M/mm3 (4.2-5.4); White Blood Count 9.1 K/mm3 (4.4-11.0)
[2022-04-12 18:00] LABS: Hemoglobin A1c 6.3 % (3.8-5.6)
[2022-04-12 18:39] LABS: ALB/GLOB Ratio 0.9 RATIO (0.9-2.4); AST(SGOT) 17 U/L (15-37); Alanine Aminotransfer ALT/SGPT 19 U/L (13-56); Albumin, Serum 3.5 g/dL (3.2-5.0); Alkaline Phosphatase 95 U/L (45-117); Anion Gap 6 (5-15); BUN 8 mg/dL (7-18); BUN/Creat Ratio 10.1 RATIO (10-20); Chloride 108 mmol/L (98-107); Cholesterol 191 mg/dL (200); Creatinine, Serum 0.79 mg/dL (0.55-1.02); EST Glomerular Filtration Rate 80 mL/min (>60); Est Glom Filt Rate - Afr Amer 97 mL/min (>60); Ferritin 75 ng/mL (8-252); Globulin 3.8 g/dL (2.2-4.2); Glucose 152 mg/dL (74-106); High Density Lipoprotein 44 mg/dL; Iron 49 ug/dL (50-170); Iron Binding Capacity,Total 363 ug/dL (250-450); Protein, Total 7.3 g/dL (6.4-8.2); Sodium Level 141 mmol/L (136-145); Thyroid Stim Hormone (TSH) 0.91 uIU/mL (0.358-3.74); Triglycerides 203 mg/dL; Very Low Density Lipoprotein 41 mg/dL (5-40)
== END | disposition home or self-care (01) ==
LOC: MFPLAB 16:44
PROVIDERS: PCP Family Medicine; Visit Provider Family Medicine
DX: D50.9 Iron deficiency anemia, unspecified (principal); E11.9 Type 2 diabetes mellitus without complications
CPT/HCPCS: 36415; 80053; 80061; 82728; 83036; 83540; 83550; 84443; 85025

== ENCOUNTER → 2022-04-13 | Outpatient (CLI) | payer BC, SELFPAY ==
[2022-04-13 18:06] LABS: Microalbumin,Random Urine 7.2 mg/L (NO RANGE EST.); Microalbumin:Creatinine Ratio 8.4 mg/g CRE (<30 mg/g CRE)
== END | disposition home or self-care (01) ==
LOC: MFPLAB 16:22
PROVIDERS: PCP Family Medicine; Visit Provider Family Medicine
DX: E11.9 Type 2 diabetes mellitus without complications (principal)
CPT/HCPCS: 82043; 82570

== ENCOUNTER → 2022-06-06 | Outpatient (CLI) | payer BC, SELFPAY ==
[2022-06-06 13:56] LABS: Erythrocyte Sedimentation Rate 24 mm/hr (0-30)
[2022-06-06 13:58] LABS: Absolute Lymphocyte Count 1.81 X10^3/uL (0.83-4.51); Absolute Neutrophil Count 4.3 X10^3/uL (2.0-7.7); Basophil# 0.08 X10^3/uL; Basophil% 1.1 % (0-1); Eosinophils% 4.2 % (0-5); Hematocrit 45.3 % (37-47); Hemoglobin 14.1 g/dL (12.0-15.0); Lymphocyte # 1.81 X10^3/ul (0.83-4.51); Lymphocyte % 25.1 % (19-41); Mean Corp Hgb Conc 31.1 g/dL (32-36); Mean Corpuscular Hgb 27.9 pg (27.0-32.0); Mean Corpuscular Volume 89.7 fL (81-99); Mean Platelet Vol. 8.8 fl (6.2-12.0); Monocyte# 0.75 X10^3/uL; Monocyte% 10.4 % (0-10); NRBC Flagged by Analyzer 0 % (0-5); Neutrophil # 4.27 X10^3/uL (2.7-7.7); Neutrophil % 59.1 % (47-70); Platelet Count 330 K/mm3 (150-450); RBC Distribution Width CV 14.1 % (11.6-14.6); RBC Distribution Width SD 46.2 fl (35.1-43.9); Red Blood Count 5.05 M/mm3 (4.2-5.4); White Blood Count 7.2 K/mm3 (4.4-11.0)
[2022-06-06 14:13] LABS: ALB/GLOB Ratio 0.8 RATIO (0.9-2.4); AST(SGOT) 20 U/L (15-37); Alanine Aminotransfer ALT/SGPT 19 U/L (13-56); Albumin, Serum 3.4 g/dL (3.2-5.0); Alkaline Phosphatase 104 U/L (45-117); Anion Gap 6 (5-15); BUN 12 mg/dL (7-18); BUN/Creat Ratio 16.6 RATIO (10-20); Calcium,Total 9.2 mg/dL (8.5-10.1); Chloride 107 mmol/L (98-107); Creatinine, Serum 0.72 mg/dL (0.55-1.02); EST Glomerular Filtration Rate 89 mL/min (>60); Est Glom Filt Rate - Afr Amer 108 mL/min (>60); Globulin 4.1 g/dL (2.2-4.2); Glucose 118 mg/dL (74-106); Potassium 3.9 mmol/L (3.5-5.1); Protein, Total 7.5 g/dL (6.4-8.2); Sodium Level 140 mmol/L (136-145)
== END | disposition home or self-care (01) ==
LOC: LAB 13:20
PROVIDERS: PCP Family Medicine; Visit Provider Internal Medicine Gastroenterology
DX: K52.9 Noninfective gastroenteritis and colitis, unspecified (principal)
CPT/HCPCS: 36415; 80053; 85025; 85652; 86140

== ENCOUNTER 2022-06-11 10:11 | Day surgery (SDC) | payer BC, SELFPAY ==
[2022-06-11 10:34] VITALS: BP 153/107; PULSE 112; RESP 16; TEMP 36.1; O2SAT 97; BMI 49.9
[2022-06-11] MEDS: Lactated Ringers 1,000 ML 15 ML IV (10:39)
--- NOTE | 2022-06-11 11:09 | PCM.HP.BLA ---
History and Physical Date of Admission: 06/11/22 Chief Complaint: Colonoscopy; Abdominal Pain Details: REBECCA XIONG, is a 56 F who presents to the office today for Follow up. Rebecca established with this clinic 10.16.[address] Kendrick. She underwent colonoscopy 08.23.21 for abdominal pain, diarrhea and increased bloating. ? ? Biochemical workup and stool studies performed . CBC, vit B12, folate, TSH without pertinent abnormality.? HGB L10.9-11.7; Iron L16; Albumin L3.1? Stool studies fecal fats; enteric pathogens; C.Difficile; Ova/parasite all WNL. Stool lactoferrin Positive? ? Colonoscopy 08.23.[address] David Kendrick finding diffuse moderate inflammation of the entire colon secondary to colitis. Biopsies taken of sigmoid, transverse and ascending colon; moderate chronic active colitis with focal ulceration, mild glandular distortion, cryptitis and crypt abscesses without granulomas or dysplasia.? Start Budesonide 9mg QD.? ? CT abd/pel 09.04.21 without IBD changes seen. Nonspecific gallbladder distention; nonobstructing left nephrolithiasis.? ? Biochemical workup CBC, ESR, cytosis, CMP, LDH, GAME, ANCA, CHAVO comp with [facility] without indication for IBD.? CRP H 12.20, Celiac positive. ? ? Azathioprine 100mg started 01.17.22 with biochemical workup in two weeks? Biochemical workup CBC (WBC H11.7), CMP.? ESR H35, CRP H27.10? TPMT activity WNL 24.7; TMPT metabolites 6-TGN 94 (suboptimal); 6-MMPN <182 (toxicity >5700)? LFT AST L11/ALT 21/AP83? ? Biochemical workup ESR H34, CRP H17.70? ? Plan LV 01.12.22:? Crohn?s disease ? reduce prednisone to 40mg; ESR, CRP, IBD profile and TB/immunization profile.? ? Doing well since LV. Denies active symptoms but will have bloating periodically. She has not made a decision regarding treatment options. ? ROS Const Constitutional: No fatigue ENT ENT: No difficulty swallowing Gastro GI: Positive for bloating and excessive flatus; No abdominal pain, belching, change in bowel habits, change in stool character, coffee ground emesis, constipation, cramping, diarrhea, heartburn, difficulty swallowing, feeling full early, incontinent of stools, Vomiting blood/hematemesis, Blood in stool, loose stools, Black,tarry stools, nausea/dyspepsia, pain with swallowing, vomiting or other Musc Musculoskeletal: Positive for Arthritis; No joint pain Skin Skin: No yellowing of the eye or itchy eyes Psych Psychiatric: Positive for anxiety and No depression Endo Endocrine: No fatigue Aller/Imm Allergy/Immunologic: No itchy eyes Osito/Lymp Hematologic/Lymphatic: No easy bleeding or easy bruising Exam Const General: cooperative and comfortable Nutritional Appearance: average body habitus and well nourished [facility] Head: normal to inspection Ears: hearing grossly normal bilaterally Nose: external nose normal Face and sinus: normal facial exam Mouth: oral mucosae normal Throat: posterior oropharynx normal Eyes General: appearance normal, both eyes and all related structures Neck Neck: normal visual inspection Chest Chest palpation & inspection: normal inspection of the chest and normal palpation of entire chest wall Resp Effort & Inspection: normal respiratory effort Auscultation: Bilateral: Clear to Auscultation Cardio Palpation: normal PMI Rate: regular rate Rhythm: regular rhythm GI Inspection: normal to inspection Auscultation: normal bowel sounds Percussion: normal to percussion Palpation: no hepatosplenomegaly Skin General: no rashes or lesions noted Neuro General: patient alert Extrem General: normal to inspection Psych Affect: normal affect Quality Reporting Tobacco Screening ([facility] 138) Smoking Status: Never smoker Assessment and Plan Assessment and Plan (1) Inflammatory bowel disease: ?Status:?Chronic ?Plan: On the differential diagnosis for inflammation in the colon possibly extending to the terminal ileum would be inflammatory bowel disease in particular Crohn's disease, ulcerative colitis with backwash ileitis, infectious colitis.? She will get a repeat ESR, CRP, Prometheus testing for inflammatory bowel disease and we will schedule capsule endoscopy.? Currently she is on 60 mg of prednisone which we will titrate down to 40 mg we will also get hepatitis B and PPD along with QuantiFERON gold and chest x-ray in anticipation for possible anti-TNF therapy.? We will also repeat her colonoscopy as her genetics did not show ulcerative colitis. (2) Celiac disease: ?Status:?Acute I have examined the patient and the H&P has been reviewed. There are no clinical changes since date of exam.
--- NOTE | 2022-06-11 11:15 | COLBX_PTH ---
PATIENT: REBECCA XIONG LOC: EN U#:[id number] AGE/SX: 56/F ROOM: RE06/11/[address]: Dr. John Gregorio DO : 1965 BED: DIS: 06/11/2022 SPEC #: [id number] RECD: 06/11/22 13:38 STATUS: ROSIE RESaud #: [id number] SYED: 06/11/22 11:[address]: John Gregorio DEPT: SURGICAL PATHOLOGY RECD BY: Katherine De La Torre ENTERED: 06/11/22 13:46 SP TYPE: COLON BX OTHR DR: Dr. Tate Cordova MD Tissues: A - Cecum, NOS B - Transverse colon C - Descending colon D - Sigmoid colon biopsy E - Rectum, NOS Procedures: Surgery Specimen Level IV HEADER OPERATION: Colonoscopy (MAC), biopsy PRE-OP DIAGNOSIS: Inflammatory bowel disease TISSUE SUBMITTED: A ? Cecum biopsy, B ? Transverse colon biopsy, C ? Descending colon biopsy, D ? Sigmoid colon biopsy, E ? Rectum biopsy MICROSCOPIC DIAGNOSIS A. Cecum, biopsy: Diffuse moderate chronic active colitis. See microscopic description and comment. B. Transverse colon, biopsy: Diffuse moderate chronic active colitis. See microscopic description and comment. C. Descending colon, biopsy: Diffuse moderate chronic active colitis. See microscopic description and comment. D. Sigmoid colon, biopsy: Fragments of colonic mucosa with minimal glandular distortion. Negative for active colitis. E. Rectum, biopsy: Fragments of colonic mucosa with minimal glandular distortion. Negative for active colitis. SJ:balaji 06/12/2022 COMMENT A-C. Correlation with clinical, endoscopic findings and appropriate follow up are necessary. Please make reference to previous specimen ([id number]) colon, random biopsy with diagnosis of ?moderate chronic active colitis.? MICROSCOPIC DESCRIPTION Slides are reviewed. A-C. All three specimens show similar morphology. The specimen shows fragments of colonic mucosa with moderate acute and chronic inflammatory cell infiltrate in the lamina propria, cryptitis, crypt abscess and glandular distortion. Granulomas are not seen. No evidence of dysplasia. GROSS DESCRIPTION A - Received in fixative is one container labeled with the patient's name and designated cecum biopsy. The specimen consists of multiple irregular fragments of light wright soft tissue that in aggregate measure 1.2 x 0.3 x 0.1 cm. The specimen is totally submitted in one cassette. B - Received in fixative is one container labeled with the patient's name and designated transverse colon biopsy. The specimen consists of two irregular fragments of light wright soft tissue that in aggregate measure 0.6 x 0.3 x 0.1 cm. The specimen is totally submitted in one cassette. C - Received in fixative is one container labeled with the patient's name and designated descending colon biopsy. The specimen consists of multiple irregular fragments of light wright soft tissue that in aggregate measure 0.8 x 0.3 x 0.1 cm. The specimen is totally submitted in one cassette. D - Received in fixative is one container labeled with the patient's name and designated sigmoid colon biopsy. The specimen consists of two irregular fragments of light wright soft tissue that in aggregate measure 0.6 x 0.3 x 0.1 cm. The specimen is totally submitted in one cassette. E - Received in fixative is one container labeled with the patient's name and designated biopsy rectum. The specimen consists of multiple irregular fragments of light wright soft tissue that in aggregate measure 0.6 x 0.4 x 0.1 cm. The specimen is totally submitted in one cassette. / SJ:rg 06/11/2022 TC:3 CPT: 42891 x5
[2022-06-11 12:00] VITALS: BP 124/78; BP 153/107; PULSE 112; RESP 16; TEMP 36.3; O2SAT 92
--- NOTE | 2022-06-11 12:01 | OP.COLON_ITS ---
Patient Name: Sergio Quiros Procedure Date: 06/11/2022 11:32 AM Date of : 1965 Age: 56 Procedure: Colonoscopy Indications: Left-sided chronic ulcerative colitis Providers: John Gregorio DO Referring MD: Tate Cordova Medicines: Monitored Anesthesia Care Patient Profile: This is a 56 year old female. Refer to note in patient chart for documentation of history and physical. Last Colonoscopy: within the past year. Complications: No immediate complications. Procedure: Pre-Anesthesia Assessment: - Prior to the procedure, a History and Physical was performed, and patient medications and allergies were reviewed. The patient is competent. The risks and benefits of the procedure and the sedation options and risks were discussed with the patient. All questions were answered and informed consent was obtained. Patient identification and proposed procedure were verified by the physician in the pre-procedure area. Mental Status Examination: alert and oriented. Airway Examination: normal oropharyngeal airway and neck mobility. Respiratory Examination: clear to auscultation. CV Examination: normal. Prophylactic Antibiotics: The patient does not require prophylactic antibiotics. Prior Anticoagulants: The patient has taken no previous anticoagulant or antiplatelet agents. ASA Grade Assessment: II - A patient with mild systemic disease. After reviewing the risks and benefits, the patient was deemed in satisfactory condition to undergo the procedure. The anesthesia plan was to use monitored anesthesia care (MAC). Immediately prior to administration of medications, the patient was re-assessed for adequacy to receive sedatives. The heart rate, respiratory rate, oxygen saturations, blood pressure, adequacy of pulmonary ventilation, and response to care were monitored throughout the procedure. The physical status of the patient was re-assessed after the procedure. After I obtained informed consent, the scope was passed under direct vision. Throughout the procedure, the patient's blood pressure, pulse, and oxygen saturations were monitored continuously. The colonoscope was introduced through the anus and advanced to the cecum, identified by appendiceal orifice and ileocecal valve. The colonoscopy was performed without difficulty. The patient tolerated the procedure well. The quality of the bowel preparation was good. Scope In: 11:41:37 AM Scope Withdrawal Time 0 hours 9 minutes 7 seconds Scope Out: 11:55:00 AM Total Procedure Duration Time 0 hours 13 minutes 23 seconds Findings: The perianal and digital rectal examinations were normal. Inflammation was found as patches surrounded by normal mucosa 5 cm apart. This was graded as Posadas Score 2 (moderate, with marked erythema, absent vascular pattern, friability, erosions), and when compared to the previous examination, the findings are improved. Biopsies were taken with a cold forceps for histology. Verification of patient identification for the specimen was done. Estimated blood loss was minimal. A few small-mouthed diverticula were found in the recto-sigmoid colon and sigmoid colon. Impression: - Moderately active (Posadas Score 2) ulcerative colitis, improved since the last examination. Biopsied. - Diverticulosis in the recto-sigmoid colon and in the sigmoid colon. Recommendation: - Discharge patient to home. - Resume previous diet. - Continue present medications. - Await pathology results. - Repeat colonoscopy in 1 year for surveillance. - Return to GI office. Procedure Code(s): --- Professional --- 31811, Colonoscopy, flexible; with biopsy, single or multiple CPT copyright 2017 [employer]. All rights reserved. The codes documented in this report are preliminary and upon fitting room maintenance mechanic review may be revised to meet current compliance requirements. John Gregorio DO 06/11/2022 12:01:30 PM This report has been signed electronically. Number of Addenda: 0 Note Initiated On: 06/11/2022 11:32 AM
--- NOTE | 2022-06-11 12:02 | OP.CCLET_ITS ---
06/11/2022 Tate Cordova [address] [place] [address] Re : Colonoscopy procedure for Sergio Quiros Dear Dr. Cordova This procedure was performed on Saturday, June 11, 2022. My impressions and recommendations are as follows: Impressions : - Moderately active (Posadas Score 2) ulcerative colitis, improved since the last examination. Biopsied. - Diverticulosis in the recto-sigmoid colon and in the sigmoid colon. Recommendations : - Discharge patient to home. - Resume previous diet. - Continue present medications. - Await pathology results. - Repeat colonoscopy in 1 year for surveillance. - Return to GI office. My findings are described in the full procedure note, which is enclosed. If I can be of further assistance, please feel free to contact me at . Sincerely, John Gregorio, 06/11/2022 12:01:30 PM This report has been signed electronically.
[2022-06-11 12:05] VITALS: BP 123/86; BP 153/107; PULSE 104; RESP 16; O2SAT 95
[2022-06-11 12:10] VITALS: BP 123/86; BP 153/107; PULSE 107; RESP 16; O2SAT 94
[2022-06-11 12:15] VITALS: BP 126/88; BP 153/107; PULSE 108; RESP 16; TEMP 36.4; O2SAT 93
[2022-06-11 12:25] VITALS: BP 153/107
== END 2022-06-11 12:43 | disposition home or self-care (01) ==
LOC: EN 10:13 → AC 10:13
PROVIDERS: PCP Family Medicine; Referring Provider Family Medicine; Visit Provider Internal Medicine Gastroenterology
PROC: 0DJD8ZZ Inspection of Lower Intestinal Tract, Via Natural or Artificial Opening Endoscopic (ICD-10-PCS; CPT 45378; principal; 2022-06-11 11:10)
DX: K51.90 Ulcerative colitis, unspecified, without complications (principal); K90.0 Celiac disease; K82.8 Other specified diseases of gallbladder; K57.30 Diverticulosis of large intestine without perforation or abscess without bleeding; R14.0 Abdominal distension (gaseous); F41.9 Anxiety disorder, unspecified
CPT/HCPCS: 45380; 87493; 87506; 88305; J7120; J2405

== ENCOUNTER → 2022-07-04 | Outpatient (CLI) | payer BC, SELFPAY ==
[2022-07-04 17:25] LABS: Erythrocyte Sedimentation Rate 20 mm/hr (0-30)
[2022-07-06 15:08] LABS: Endomysial Antibody IgA Positive (Negative)
[2022-07-06 15:28] LABS: Immunoglobulin A 201 mg/dL (87-352); t-Transglutaminase IgA 13 U/mL (0-3)
== END | disposition home or self-care (01) ==
LOC: LAB 15:45
PROVIDERS: PCP Family Medicine; Referring Provider Internal Medicine Gastroenterology; Visit Provider Internal Medicine Gastroenterology
DX: A49.8 Other bacterial infections of unspecified site (principal); K90.0 Celiac disease; K52.9 Noninfective gastroenteritis and colitis, unspecified
CPT/HCPCS: 36415; 82784; 83516; 85652; 86140; 86255

== ENCOUNTER → 2022-12-27 | Outpatient (CLI) | payer BC, SELFPAY ==
[2022-12-27 17:48] LABS: Absolute Lymphocyte Count 2.43 X10^3/uL (0.83-4.51); Absolute Neutrophil Count 3.3 X10^3/uL (2.0-7.7); Basophil# 0.06 X10^3/uL; Basophil% 0.9 % (0-1); Eosinophil# 0.19 X10^3/uL; Eosinophils% 2.8 % (0-5); Hematocrit 42.4 % (37-47); Hemoglobin 12.8 g/dL (12.0-15.0); Lymphocyte # 2.43 X10^3/ul (0.83-4.51); Lymphocyte % 36.2 % (19-41); Mean Corp Hgb Conc 30.2 g/dL (32-36); Mean Corpuscular Hgb 27.6 pg (27.0-32.0); Mean Corpuscular Volume 91.4 fL (81-99); Mean Platelet Vol. 9.2 fl (6.2-12.0); Monocyte# 0.75 X10^3/uL; Monocyte% 11.2 % (0-10); NRBC Flagged by Analyzer 0 % (0-5); Neutrophil # 3.26 X10^3/uL (2.7-7.7); Neutrophil % 48.6 % (47-70); Platelet Count 358 K/mm3 (150-450); RBC Distribution Width SD 47.5 fl (35.1-43.9); Red Blood Count 4.64 M/mm3 (4.2-5.4); White Blood Count 6.7 K/mm3 (4.4-11.0)
[2022-12-27 18:13] LABS: ALB/GLOB Ratio 0.8 RATIO (0.9-2.4); AST(SGOT) 15 U/L (15-37); Alanine Aminotransfer ALT/SGPT 23 U/L (13-56); Albumin, Serum 3.4 g/dL (3.2-5.0); Alkaline Phosphatase 110 U/L (45-117); Anion Gap 5 (5-15); BUN 9 mg/dL (7-18); BUN/Creat Ratio 13.8 RATIO (10-20); Chloride 109 mmol/L (98-107); Cholesterol 161 mg/dL (200); Creatinine, Serum 0.65 mg/dL (0.55-1.02); EST Glomerular Filtration Rate 101 mL/min (>60); Est Glom Filt Rate - Afr Amer 122 mL/min (>60); Globulin 4.2 g/dL (2.2-4.2); Glucose 98 mg/dL (74-106); High Density Lipoprotein 33 mg/dL; Magnesium 2.1 mg/dL (1.6-2.6); Protein, Total 7.6 g/dL (6.4-8.2); Sodium Level 139 mmol/L (136-145); Triglycerides 239 mg/dL; Very Low Density Lipoprotein 48 mg/dL (5-40)
[2022-12-27 18:20] LABS: Hemoglobin A1c 6.1 % (3.8-5.6)
== END | disposition home or self-care (01) ==
LOC: MFPLAB 14:18
PROVIDERS: PCP Family Medicine; Visit Provider Family Medicine
DX: E66.01 Morbid (severe) obesity due to excess calories (principal); E11.9 Type 2 diabetes mellitus without complications; R00.0 Tachycardia, unspecified
CPT/HCPCS: 36415; 80053; 80061; 82043; 82570; 83036; 83735; 85025

== ENCOUNTER → 2023-01-04 | Outpatient (CLI) | payer BC, SELFPAY ==
[2023-01-08 17:07] LABS: Calprotectin, Stool 1240 ug/g (0-120)
== END | disposition home or self-care (01) ==
LOC: LABSPEC 11:33
PROVIDERS: PCP Family Medicine; Referring Provider Internal Medicine Gastroenterology; Visit Provider Internal Medicine Gastroenterology
DX: A49.8 Other bacterial infections of unspecified site (principal); K90.0 Celiac disease; K52.9 Noninfective gastroenteritis and colitis, unspecified
CPT/HCPCS: 83630; 83993; 87493

== ENCOUNTER 2023-02-27 12:56 | Outpatient (CLI) | payer BC, SELFPAY ==
[2023-02-27 13:23] VITALS: BP 141/91; PULSE 111; RESP 16; TEMP 36.6; O2SAT 98; BMI 47.1
[2023-02-27] MEDS: Ustekinumab 520 MG in 0.9% Normal Saline (250mL Bag) 146 ML 250 MG IV (14:28)
[2023-02-27] MEDS: 0.9% NaCl IVPB Med Flush (250 mL) 15 ML IV (14:28)
[2023-02-27 15:41] VITALS: BP 115/80; PULSE 84; RESP 16; TEMP 36.2
== END 2023-02-27 12:57 | disposition home or self-care (01) ==
LOC: MEDOUTP 12:56
PROVIDERS: PCP Family Medicine; Referring Provider Internal Medicine Gastroenterology; Visit Provider Internal Medicine Gastroenterology
DX: K50.90 Crohn's disease, unspecified, without complications (principal)
CPT/HCPCS: 96365; J7050; A4216; J3358

== ENCOUNTER → 2023-05-02 | Outpatient (CLI) | payer BC, SELFPAY ==
[2023-05-02 16:30] LABS: Absolute Lymphocyte Count 2.44 X10^3/uL (0.83-4.51); Absolute Neutrophil Count 3.7 X10^3/uL (2.0-7.7); Basophil# 0.09 X10^3/uL; Basophil% 1.2 % (0-1); Eosinophil# 0.19 X10^3/uL; Eosinophils% 2.5 % (0-5); Hematocrit 42.4 % (37-47); Hemoglobin 12.6 g/dL (12.0-15.0); Lymphocyte # 2.44 X10^3/ul (0.83-4.51); Lymphocyte % 32.5 % (19-41); Mean Corp Hgb Conc 29.7 g/dL (32-36); Mean Corpuscular Hgb 26.5 pg (27.0-32.0); Mean Corpuscular Volume 89.1 fL (81-99); Mean Platelet Vol. 9.1 fl (6.2-12.0); Monocyte# 1.08 X10^3/uL; Monocyte% 14.4 % (0-10); NRBC Flagged by Analyzer 0 % (0-5); Neutrophil # 3.69 X10^3/uL (2.7-7.7); Neutrophil % 49.3 % (47-70); Platelet Count 368 K/mm3 (150-450); RBC Distribution Width CV 14.1 % (11.6-14.6); RBC Distribution Width SD 46.4 fl (35.1-43.9); Red Blood Count 4.76 M/mm3 (4.2-5.4); White Blood Count 7.5 K/mm3 (4.4-11.0)
[2023-05-02 16:30] LABS: Erythrocyte Sedimentation Rate 97 mm/hr (0-30)
[2023-05-02 16:40] LABS: Hemoglobin A1c 5.9 % (3.8-5.6)
[2023-05-02 16:59] LABS: LDH 135 U/L (84-246)
[2023-05-02 17:04] LABS: ALB/GLOB Ratio 0.7 RATIO (0.9-2.4); AST(SGOT) 16 U/L (15-37); Alanine Aminotransfer ALT/SGPT 20 U/L (13-56); Albumin, Serum 3.5 g/dL (3.2-5.0); Alkaline Phosphatase 120 U/L (45-117); Anion Gap 7 (5-15); BUN 9 mg/dL (7-18); BUN/Creat Ratio 13.5 RATIO (10-20); Calcium,Total 9.7 mg/dL (8.5-10.1); Chloride 105 mmol/L (98-107); Cholesterol 167 mg/dL (200); Creatinine, Serum 0.67 mg/dL (0.55-1.02); EST Glomerular Filtration Rate 97 mL/min (>60); Est Glom Filt Rate - Afr Amer 117 mL/min (>60); Globulin 4.9 g/dL (2.2-4.2); Glucose 108 mg/dL (74-106); High Density Lipoprotein 38 mg/dL; Potassium 3.9 mmol/L (3.5-5.1); Protein, Total 8.4 g/dL (6.4-8.2); Sodium Level 135 mmol/L (136-145); Thyroid Stim Hormone (TSH) 0.91 uIU/mL (0.358-3.74); Triglycerides 202 mg/dL; Very Low Density Lipoprotein 40 mg/dL (5-40)
--- OUTSIDE RECORDS SUMMARY | 2023-05-02 18:04 | XMS RPT_ITS | CCD ---
Author Name Unknown Address [address] [place] [address] Organization [facility] Care Team Providers Care Concrete Form Setter Name Role Phone Tia Jalloh DO Unavailable [phone] Tia Jalloh DO Unavailable [phone] Shoe Repairman, System Unavailable Unavailable Shanon Garcia Unavailable Unavailable Joie Thibodeaux CNP Unavailable Unavailable Unavailable Eddi Rodas MD Primary Care Provider EDDI RODAS Primary Care Unavailable Allergies Allergy Classification Reported Allergen(s) Allergy Type Date of Onset Reaction(s) Facility (1 source) Contrast media Allergy to substance (finding) [facility] Work Phone: (2 sources) Clindamycin; Translations: [CLINDAMYCIN] Drug Allergy 6 Other: See Comments [facility] Work Phone: (2 sources) Ibuprofen; Translations: [IBUPROFEN] Drug Allergy 6 Swelling [facility] Work Phone: Medications Current Medications Medication Drug Class(es) Dates Sig (Normalized) Sig (Original) polymyxin b 12622 unt/ml / trimethoprim 1 mg/ml ophthalmic solution (1 source) Dihydrofolate Reductase Inhibitor Antibacterial, Polymyxin-class Antibacterial Start: 02-20-2023 End: 02-27-2023 take 1 drop(s) into the eye(s) four times daily trimethoprim-polymy palmer (POLYTRIM) 10,000 unit- 1 mg/mL ophthalmic solution Indications: Acute conjunctivitis of left eye, unspecified acute conjunctivitis type Use 1 Drop in the left eye four times daily for 7 days. 10 mL 0 02/20/2023 02/27/2023 Active Completed/Discontinued Medications Medication Drug Class(es) Dates Sig (Normalized) Sig (Original) amoxicillin 875 mg / clavulanate 125 mg oral tablet (1 source) Penicillin-class Antibacterial Start: 06-23-2007 End: 07-14-2007 take 1 tablet by mouth twice daily AUGMENTIN, 875-125MG (Oral Tablet) 1 Tablet Twice daily for 0 days Quantity: 20 {Tablet} Refills: 0 Ordered: 23-Jun-2007 Ana Sheriff RN Start : 23-Jun-2007 End : 14-Jul-2007 Inactive bifidobacterium infantis 4 mg oral capsule (1 source) Start: 03-05-2012 take 1 capsule by mouth once daily ALIGN, 4MG (Oral Capsule) 1 Capsule daily for 0 days Quantity: 30 {Capsule} Refills: 0 Ordered: 05-Mar-2012 Joie Thibodeaux CNP Start : 05-Mar-2012 Active busPIRone hydrochloride 10 mg oral tablet (2 sources) Start: 12-23-2007 End: 03-05-2012 take 1 tablet by mouth twice daily BUSPAR, 10MG (Oral Tablet) 1 (one) Tablet Twice daily for 0 days Quantity: 180 {Tablet} Refills: 3 Ordered: 05-Mar-2012 Start : 23-Dec-2007 End : 05-Mar-2012 Discontinued Comments: This order discontinued per [facility]. Problems Active Problems Problem Classification Problem Date Documented Da te Episodic/Chronic Anxiety disorders (2 sources) Anxiety; Translations: [Anxiety] 03-05-2012 Chronic Deficiency and other anemia (1 source) Anemia; Translations: [Anemia, unspecified] 02-15-2015 Episodic Past or Other Problems Problem Classification Problem Date Documented Da te Episodic/Chronic Coronary atherosclerosis and other heart disease (1 source) Coronary atherosclerosis and other heart disease Unclassified (1 source) Deliveries (Parity); Translations: [Deliveries (Parity)] 03-05-2012 Results Test Name Value Interpretation Reference Range Facil ity Vital Signs Date Time Vital Sign Value Performing Clinician Facility 02-20-2023 15:03-0500 Body temperature 97.39 [degF] Kian Johnson APRN.CNP Work Phone: [facility] 02-20-2023 15:03-0500 Body weight 140.62 kg Kian Johnson APRN.CNP Work Phone: [facility] 02-20-2023 15:03-0500 Diastolic blood pressure 82 mm[Hg] Kian Johnson PROPERTY COORDINATOR.WINDING INSPECTOR AND TESTER Work Phone: [facility] 02-20-2023 15:03-0500 Heart rate 113 /min Kian Johnson PROPERTY COORDINATOR.WINDING INSPECTOR AND TESTER Work Phone: [facility] 02-20-2023 15:03-0500 Respiratory rate 18 /min Kian Johnson PROPERTY COORDINATOR.WINDING INSPECTOR AND TESTER Work Phone: [facility] 02-20-2023 15:03-0500 SaO2% (BldA) [Mass fraction] 97 % Kian Johnson PROPERTY COORDINATOR.WINDING INSPECTOR AND TESTER Work Phone: [facility] 02-20-2023 15:03-0500 Systolic blood pressure 138 mm[Hg] Kian Johnson PROPERTY COORDINATOR.WINDING INSPECTOR AND TESTER Work Phone: [facility] 03-05-2012 14:14-0500 Body height 170.18 cm Tia Jalloh DO Work Phone: [facility] Work Phone: 03-05-2012 14:14-0500 Body mass index (BMI) [Ratio] 47.7 kg/m2 Tia Jalloh DO Work Phone: [facility] Work Phone: 03-05-2012 14:14-0500 Body surface area Derived from formula 2.42 m2 Tia Jalloh DO Work Phone: [facility]; [facility] Work Phone: 03-05-2012 14:14-0500 Body temperature 98.6 [degF] Tia Jalloh DO Work Phone: [facility] Work Phone: Encounters Encounter Date Encounter Type Care Provider Facility Start: 02-20-2023 End: 02-20-2023 [facility] Start: 02-20-2023 End: 02-20-2023 Patient encounter procedure Kian Johnson WINDING INSPECTOR AND TESTER Work Phone: [facility] Plan of Treatment Date Care Activity Detail Author Start: 11-30-2022 Covid-19 Vaccine ( season) Covid-19 Vaccine ( season) [facility] Start: 11-30-2022 Influenza vaccination Influenza Vaccine (#1) [facility] Start: 04-01-2022 Depression Assessment Depression Assessment [facility] Start: 08-25-2017 Shingrix Vaccine (1 of 2) Shingrix Vaccine (1 of 2) [facility] Start: 08-25-2012 Cologuard (FIT-DNA) Cologuard (FIT-DNA) [facility] Start: 08-25-2012 Colonoscopy Colonoscopy [facility] Start: 08-25-2012 Colorectal Cancer Screening Colorectal Cancer Screening [facility] Start: 08-25-[address] Colonography [facility] Start: 08-25-2012 Diabetes Screening Diabetes Screening [facility] Start: 08-25-2012 Fecal Occult Blood Fecal Occult Blood [facility] Start: 08-25-2012 Lipid 1996 panel - Serum or Plasma Lipid Screening [facility] Start: 08-25-2012 Sigmoidoscopy Sigmoidoscopy [facility] Start: 02-11-2009 Glucose quantitative blood xcpt reagent strip Glucose, PP/2 Hour (84388) [facility] Work Phone: Start: 12-03-2008 Blood count complete automated CBC (Auto) (15959) [facility]; [facility] Work Phone: Start: 12-03-2008 Assay of iron Iron (66588) [facility] Work Phone: Start: 12-03-2008 Iron binding capacity Iron Binding Capacity (TIBC) (01520) [facility]; [facility] Work Phone: Start: 12-03-2008 Assay of ferritin Ferritin (86932) [facility] Work Phone: Start: 12-03-2008 Lipid panel LIPID PANEL (00209) [facility] Work Phone: Start: 12-03-2008 Glucose quantitative blood xcpt reagent strip Glucose, PP/2 Hour (68189) [facility]; [facility] Work Phone: Start: 03-11-2008 Provider Instructions for Treatment Reviewed Lab [facility]; [facility] Work Phone: Start: 02-25-2008 Patient Education Anemia: diagnosis and treatment [facility]; [facility] Work Phone: Start: 02-25-2008 Assay of ferritin FERRITIN (44871) [facility] Work Phone: Start: 02-25-2008 Assay of folic acid serum FOLIC ACID SERUM (68274) [facility]; [facility] Work Phone: Start: 02-25-2008 Assay of haptoglobin quantitative HAPTOGLOBIN (31891) [facility]; [facility] Work Phone: Start: 02-25-2008 Assay of iron IRON (38077) [facility] Work Phone: Start: 02-25-2008 Blood count complete auto&auto difrntl wbc CBC, PLATELETS & AUT DIFF (33128) [facility]; [facility] Work Phone: Start: 02-25-2008 Blood count reticulocyte automated RETICULOCYTE COUNT [facility] (92172) [facility]; [facility] Work Phone: Start: 02-25-2008 Cyanocobalamin vitamin b-12 VITAMIN B-12 (CYANOCOBALAMIN) (79002) [facility]; [facility] Work Phone: Start: 02-25-2008 Iron binding capacity IRON BINDING CAPACITY (TIBC) (47801) [facility]; [facility] Work Phone: Start: 02-25-2008 Lactate dehydrogenase ldh LDH (LD) (LACTATE DEHYDROGENASE) (25070) [facility]; [facility] Work Phone: Start: 2007 Mammography Mammogram Screening [facility] Start: 07-14-2007 Provider Instructions for Treatment Reviewed Diagnostic Tests [facility]; [facility] Work Phone: Start: 06-23-2007 Patient Education Sore throat: diagnosis and treatment [facility]; [facility] Work Phone: Start: 06-23-2007 Provider Instructions for Treatment *URI Treatment [facility]; [facility] Work Phone: Start: 06-23-2007 Immunoassay tumor antigen quantitative CA 125 (98126) [facility]; [facility] Work Phone: Start: 06-23-2007 Cul bact xcpt urine blood/stool aerobic isol BONG CULTURE-OTHER (33986) [facility]; [facility] Work Phone: Start: 03-06-2007 Provider Instructions for Treatment [facility]; [facility] Work Phone: Start: 02-28-2007 Glucose quantitative blood xcpt reagent strip Glucose, PP/2 Hour (47589) [facility]; [facility] Work Phone: Start: 02-28-2007 Lipid panel LIPID PANEL (89570) [facility] Work Phone: Start: 02-28-2007 Blood count complete automated CBC (AUTO) (10649) [facility]; [facility] Work Phone: Start: 02-28-2007 Assay of thyroid stimulating hormone tsh TSH (59769) [facility]; [facility] Work Phone: Start: 02-28-2007 Prothrombin time PT (PROTHROMBIN TIME) (73034) [facility]; [facility] Work Phone: Start: 02-28-2007 Thromboplastin time partial plasma/whole blood PTT (ACTIVATED PARTIAL THROMBOPLASTIN TIME) (74371) [facility]; [facility] Work Phone: Start: 08-25-1997 HPV Testing HPV Testing [facility] Start: 08-25-1988 Pap Testing Pap Testing [facility] Start: 08-25-1986 Urine microalbumin profile DTaP,Tdap,Td Vaccine (1 - Tdap) [facility] Start: 08-25-1985 Hepatitis C Screening Hepatitis C Screening [facility] Start: 08-25-1985 HIV Screening HIV Screening [facility] Start: 1967 Hepatitis B Vaccine (1 of 3 - 3-dose series) Hepatitis B Vaccine (1 of 3 - 3-dose series) [facility] Work Phone: [facility] Work Phone: [facility] Work Phone: Immunizations Immunization Date Immunization Notes Care Provider Fa cility 04-03-2019 influenza virus vacc ine, unspecified formulation Kian Johnson APRN.WINDING INSPECTOR AND TESTER Work Phone: [facility] Payers Date Payer Category Payer Unknown 2013 Unknown [id number] Social History Date Type Detail Facility Start: 02-20-2023 Caffeine Use Caffeine Use Comprehens [facility] Work Phone: Progress note 02-20-2023 Note Date & Type Note Facility 02-20-2023 Note HNO ID: [id number] Author: Kian Johnson APRN.WINDING INSPECTOR AND TESTER Service: ? Author Type: Nurse Practitioner Type: Progress Notes Filed: 02/20/2023 3:24 PM Note Text: Subjective HPI HPI Rebecca Xiong is a 57 year old female who presents today for CC of left eye redness/drainage/crusting. This started today. Has tried nothing for relief. Symptoms are worsened by nothing. Denies uri symptoms and sick exposures. Denies vision change. Denies contact wearing. .Patient presents with: Conjunctivitis: Left eye started this morning. No past medical history on file. No past surgical history on file. ALLERGIES Clindamycin and Ibuprofen MEDICATIONS busPIRone (BUSPAR) 7.5 mg tablet Take 7.5 mg by mouth two times a day. trimethoprim-polymyxin (POLYTRIM) 10,000 unit- 1 mg/mL ophthalmic solution Use 1 Drop in the left eye four times daily for 7 days. No family history on file. Social History Tobacco Use Smoking status: Never Smokeless tobacco: Never Review of Systems Constitutional: Negative for chills and fever. HENT: Negative for ear discharge, ear pain and sore throat. Eyes: Positive for discharge and redness. Negative for blurred vision, double vision, photophobia and pain. Neurological: Negative for headaches. Objective Blood pressure 138/82, pulse 113, temperature 36.3 ?C (97.4 ?F), resp. rate 18, weight (!) 140.6 kg (310 lb), last menstrual period 08/07/2015, SpO2 97 %. Physical Exam Constitutional: General: She is not in acute distress. Appearance: She is not toxic-appearing. HENT: Right Ear: Hearing, tympanic membrane and external ear normal. Left Ear: Hearing, tympanic membrane, ear canal and external ear normal. Nose: No mucosal edema. Mouth/Throat: Pharynx: Uvula midline. Posterior oropharyngeal erythema present. Eyes: General: Right eye: No discharge. Left eye: No discharge. Conjunctiva/sclera: Right eye: Right conjunctiva is injected. Left eye: Left conjunctiva is injected. Lymphadenopathy: Cervical: Right cervical: No superficial cervical adenopathy. Left cervical: No superficial cervical adenopathy. Comments: No cervical lymphadenopathy bilaterally Neurological: Mental Status: She is oriented to person, place, and time. ASSESSMENT/PLAN: 1. Acute conjunctivitis of left eye, unspecified acute conjunctivitis type - ICD9: 372.00, ICD10: H10.32 - see medication orders - course and contagiousness issues discussed, including hand washing. - Instructed to call if high fever, development of periorbital redness or swelling, eye pain, visual changes, concerns or if symptoms persist. - POLYMYXIN B SULFATE 10,000 UNIT-TRIMETHOPRIM 1 MG/ML EYE DROPS Kian Johnson APRN.[facility] History of Present illness Narrative 02-20-2023 Kian Johnson APRN.[facility] - 02/20/2023 3:19 PM EST Note Date & Type Note Facility 02-20-2023 History of Presen t illness Narrative Subjective HPI HPI Rebecac Xiong is a 57 year old female who presents today for CC of left eye redness/drainage/crusting. This started today. Has tried nothing for relief. Symptoms are worsened by nothing. Denies uri symptoms and sick exposures. Denies vision change. Denies contact wearing. .Patient presents with: Conjunctivitis: Left eye started this morning. No past medical history on file. No past surgical history on file. ALLERGIES Clindamycin and Ibuprofen MEDICATIONS busPIRone (BUSPAR) 7.5 mg tablet Take 7.5 mg by mouth two times a day. trimethoprim-polymyxin (POLYTRIM) 10,000 unit- 1 mg/mL ophthalmic solution Use 1 Drop in the left eye four times daily for 7 days. No family history on file. Social History Tobacco Use Smoking status: Never Smokeless tobacco: Never Review of Systems Constitutional: Negative for chills and fever. HENT: Negative for ear discharge, ear pain and sore throat. Eyes: Positive for discharge and redness. Negative for blurred vision, double vision, photophobia and pain. Neurological: Negative for headaches. Objective Blood pressure 138/82, pulse 113, temperature 36.3 C (97.4 F), resp. rate 18, weight (!) 140.6 kg (310 lb), last menstrual period 08/07/2015, SpO2 97 %. Physical Exam Constitutional: General: She is not in acute distress. Appearance: She is not toxic-appearing. HENT: Right Ear: Hearing, tympanic membrane and external ear normal. Left Ear: Hearing, tympanic membrane, ear canal and external ear normal. Nose: No mucosal edema. Mouth/Throat: Pharynx: Uvula midline. Posterior oropharyngeal erythema present. Eyes: General: Right eye: No discharge. Left eye: No discharge. Conjunctiva/sclera: Right eye: Right conjunctiva is injected. Left eye: Left conjunctiva is injected. Lymphadenopathy: Cervical: Right cervical: No superficial cervical adenopathy. Left cervical: No superficial cervical adenopathy. Comments: No cervical lymphadenopathy bilaterally Neurological: Mental Status: She is oriented to person, place, and time. ASSESSMENT/PLAN: 1. Acute conjunctivitis of left eye, unspecified acute conjunctivitis type - ICD9: 372.00, ICD10: H10.32 - see medication orders - course and contagiousness issues discussed, including hand washing. - Instructed to call if high fever, development of periorbital redness or swelling, eye pain, visual changes, concerns or if symptoms persist. - POLYMYXIN B SULFATE 10,000 UNIT-TRIMETHOPRIM 1 MG/ML EYE DROPS Kian Johnson APRN.WINDING INSPECTOR AND TESTER documented in this encounter [facility] Evaluation note Note Date & Type Note Facility documented in this encounter [facility] Summary Purpose Family History No Family History Records Found Advance Directives No Advanced Directives Records Found Additional Source Comments Source Comments (unrecognize d section and content) In the event this informatio n is protected by the Federal Confidentiality of Alcohol and Drug Abuse Patient Records regulations: The Federal rules restrict any use of the information to criminally investigate or prosecute any alcohol or drug abuse patient.[facility] Reason for Visit (unrecogniz ed section and content) Care Teams (unrecognized sec tion and content) INFORMATION SOURCE (unrecogn ized section and content) FOR RECORDS PERTAINING TO PATIENTS WHO ARE OR HAVE BEEN ENROLLED IN A CHEMICAL DEPENDENCY/SUBSTANCEABUSE PROGRAM, SOME INFORMATION MAY BE OMITTED. This clinical summary was aggregated from multiple sources. Caution should be exercised in using it in the provision of clinical care. This summary normalizes information from multiple sources, and as a consequence, information in this document may materially change the coding, format and clinical context of patient data. In addition, data may be omitted in some cases. CLINICAL DECISIONS SHOULD BE BASED ON THE PRIMARY CLINICAL RECORDS. [facility] [employer] [facility]. provides no warranty or guarantee of the accuracy or completeness of information in this document.
== END | disposition home or self-care (01) ==
PROVIDERS: PCP Family Medicine; Referring Provider Internal Medicine Gastroenterology; Visit Provider Internal Medicine Gastroenterology
DX: E11.9 Type 2 diabetes mellitus without complications (principal); A49.8 Other bacterial infections of unspecified site; K52.9 Noninfective gastroenteritis and colitis, unspecified
CPT/HCPCS: 36415; 80053; 80061; 83036; 83615; 84443; 85025; 85652; 86140

== ENCOUNTER → 2023-05-08 | Outpatient (CLI) | payer BC, SELFPAY ==
--- OUTSIDE RECORDS SUMMARY | 2023-05-08 16:48 | XMS RPT_ITS | CCD ---
Author Name Unknown Address [address] [place] [address] Organization [facility] Care Team Providers Care Sanitation Lead Name Role Phone Tia Jalloh DO Unavailable [phone] Tia Jalloh DO Unavailable [phone] [facility] Unavailable Unavailable Shanon Garcia Unavailable Unavailable Joie Thibodeaux CNP Unavailable Unavailable Unavailable Eddi Rodas MD Primary Care Provider EDDI RODAS Primary Care Unavailable Allergies Allergy Classification Reported Allergen(s) Allergy Type Date of Onset Reaction(s) Facility (1 source) Contrast media Allergy to substance (finding) [facility] Work Phone: (2 sources) Clindamycin; Translations: [CLINDAMYCIN] Drug Allergy 6 Other: See Comments [facility] Work Phone: (2 sources) Ibuprofen; Translations: [IBUPROFEN] Drug Allergy 6 Swelling [facility] Work Phone: Medications Current Medications Medication Drug Class(es) Dates Sig (Normalized) Sig (Original) polymyxin b 30250 unt/ml / trimethoprim 1 mg/ml ophthalmic solution [...] 97.39 [degF] Kian Johnson APRN.CNP Work Phone: [facility] 02-20-2023 15:03-0500 Body weight 140.62 kg Kian Johnson APRN.CNP Work Phone: [facility] 02-20-2023 15:03-0500 Diastolic blood pressure 82 mm[Hg] Kian Johnson GUEST SPECIALIST.MATH COACH Work Phone: [facility] 02-20-2023 15:03-0500 Heart rate 113 /min Kian Johnson GUEST SPECIALIST.MATH COACH Work Phone: [facility] 02-20-2023 15:03-0500 Respiratory rate 18 /min Kian Johnson GUEST SPECIALIST.MATH COACH Work Phone: [facility] 02-20-2023 15:03-0500 SaO2% (BldA) [Mass fraction] 97 % Kian Johnson GUEST SPECIALIST.MATH COACH Work Phone: [facility] 02-20-2023 15:03-0500 Systolic blood pressure 138 mm[Hg] Kian Johnson GUEST SPECIALIST.MATH COACH Work Phone: [facility] 03-05-2012 14:14-0500 Body height 170.18 cm Tia [...] Provider Facility Start: 02-20-2023 End: 02-20-2023 [facility] Start: 02-20-2023 End: 02-20-2023 Patient encounter procedure Kian Johnson MATH COACH Work Phone: [facility] Plan of Treatment Date Care Activity Detail Author Start: 11-30-2022 Covid-19 Vaccine ( season) Covid-19 Vaccine ( season) [facility] Start: 11-30-2022 Influenza vaccination Influenza Vaccine (#1) [facility] Start: 04-01-2022 Depression Assessment Depression Assessment [facility] Start: 08-25-2017 Shingrix Vaccine (1 of 2) Shingrix Vaccine (1 of 2) [facility] Start: 08-25-2012 Cologuard (FIT-DNA) Cologuard (FIT-DNA) [facility] Start: 08-25-2012 Colonoscopy Colonoscopy [facility] Start: 08-25-2012 Colorectal Cancer Screening Colorectal Cancer Screening [facility] Start: 08-25-[address] Colonography [facility] Start: 08-25-2012 Diabetes Screening Diabetes Screening [facility] Start: 08-25-2012 Fecal Occult Blood Fecal Occult Blood [facility] Start: 08-25-2012 Lipid 1996 panel - Serum or Plasma Lipid Screening [facility] Start: 08-25-2012 Sigmoidoscopy Sigmoidoscopy [facility] Start: 02-11-2009 Glucose quantitative blood xcpt reagent strip Glucose, PP/2 Hour (69147) [facility] Work Phone: Start: 12-03-2008 Blood count complete automated CBC (Auto) (95607) [facility] Work Phone: Start: 12-03-2008 Assay of iron Iron (70574) [facility] Work Phone: Start: 12-03-2008 Iron binding capacity Iron Binding Capacity (TIBC) (29726) [facility]; [facility] Work Phone: Start: 12-03-2008 Assay of ferritin Ferritin (79145) [facility] Work Phone: Start: 12-03-2008 Lipid panel LIPID PANEL (25952) [facility] Work Phone: Start: 12-03-2008 Glucose quantitative blood xcpt reagent strip Glucose, PP/2 Hour (02953) [facility] Work Phone: Start: 03-11-2008 Provider Instructions for Treatment Reviewed Lab [facility] Work Phone: Start: 02-25-2008 Patient Education Anemia: diagnosis and treatment [facility] Work Phone: Start: 02-25-2008 Assay of ferritin FERRITIN (39910) [facility] Work Phone: Start: 02-25-2008 Assay of folic acid serum FOLIC ACID SERUM (46163) [facility] Work Phone: Start: 02-25-2008 Assay of haptoglobin quantitative HAPTOGLOBIN (24085) [facility]; [facility] Work Phone: Start: 02-25-2008 Assay of iron IRON (89958) [facility] Work Phone: Start: 02-25-2008 Blood count complete auto&auto difrntl wbc CBC, PLATELETS & AUT DIFF (52100) [facility]; [facility] Work Phone: Start: 02-25-2008 Blood count reticulocyte automated RETICULOCYTE COUNT [facility] (93181) [facility]; [facility] Work Phone: Start: 02-25-2008 Cyanocobalamin vitamin b-12 VITAMIN B-12 (CYANOCOBALAMIN) (68070) [facility]; [facility] Work Phone: Start: 02-25-2008 Iron binding capacity IRON BINDING CAPACITY (TIBC) (31297) [facility]; [facility] Work Phone: Start: 02-25-2008 Lactate dehydrogenase ldh LDH (LD) (LACTATE DEHYDROGENASE) (58739) [facility]; [facility] Work Phone: Start: 2007 Mammography Mammogram Screening [facility] Start: 07-14-2007 Provider Instructions for Treatment Reviewed Diagnostic Tests [facility]; [facility] Work Phone: Start: 06-23-2007 Patient Education Sore throat: diagnosis and treatment [facility]; [facility] Work Phone: Start: 06-23-2007 Provider Instructions for Treatment *URI Treatment [facility]; [facility] Work Phone: Start: 06-23-2007 Immunoassay tumor antigen quantitative CA 125 (55138) [facility]; [facility] Work Phone: Start: 06-23-2007 Cul bact xcpt urine blood/stool aerobic isol BONG CULTURE-OTHER (06582) [facility]; [facility] Work Phone: Start: 03-06-2007 Provider Instructions for Treatment [facility]; [facility] Work Phone: Start: 02-28-2007 Glucose quantitative blood xcpt reagent strip Glucose, PP/2 Hour (86051) [facility]; [facility] Work Phone: Start: 02-28-2007 Lipid panel LIPID PANEL (89822) [facility] Work Phone: Start: 02-28-2007 Blood count complete automated CBC (AUTO) (59290) [facility]; [facility] Work Phone: Start: 02-28-2007 Assay of thyroid stimulating hormone tsh TSH (17464) [facility]; [facility] Work Phone: Start: 02-28-2007 Prothrombin time PT (PROTHROMBIN TIME) (16040) [facility]; [facility] Work Phone: Start: 02-28-2007 Thromboplastin time partial plasma/whole blood PTT (ACTIVATED PARTIAL THROMBOPLASTIN TIME) (26569) [facility]; [facility] Work Phone: Start: 08-25-1997 HPV Testing HPV Testing [facility] Start: 08-25-1988 Pap Testing Pap Testing [facility] Start: 08-25-1986 Urine microalbumin profile DTaP,Tdap,Td Vaccine (1 - Tdap) [facility] Start: 08-25-1985 Hepatitis C Screening Hepatitis C Screening [facility] Start: 08-25-1985 HIV Screening HIV Screening [facility] Start: 1967 Hepatitis B Vaccine (1 of 3 - 3-dose series) Hepatitis B Vaccine (1 of 3 - 3-dose series) [facility] Work Phone: [facility] Work Phone: [facility] Work Phone: Immunizations Immunization Date Immunization Notes Care Provider Fa cility 04-03-2019 influenza virus vacc ine, unspecified formulation Kian Johnson APRN.MATH COACH Work Phone: [facility] Payers Date Payer Category Payer Unknown 2013 Unknown [id number] Social History Date Type Detail Facility Start: 02-20-2023 Caffeine Use Caffeine Use Comprehens [facility] Work Phone: Progress note 02-20-2023 Note Date & Type Note Facility 02-20-2023 Note HNO ID: [id number] Author: Kian Johnson APRN.MATH COACH Service: ? Author Type: Nurse Practitioner Type: [...] UNIT-TRIMETHOPRIM 1 MG/ML EYE DROPS Kian Johnson APRN.[facility] History of Present illness Narrative 02-20-2023 Kian Johnson APRN.[facility] - 02/20/2023 3:19 PM EST Note Date & Type Note Facility 02-20-2023 History of Presen t illness Narrative Subjective HPI HPI Rebecca Xiong is a [...] UNIT-TRIMETHOPRIM 1 MG/ML EYE DROPS Kian Johnson APRN.MATH COACH documented in this encounter [facility] Evaluation note Note Date & Type Note Facility documented in this encounter [facility] Summary Purpose Family History No Family History [...] or prosecute any alcohol or drug abuse patient.[facility] Reason for Visit (unrecogniz ed section and [...] BE BASED ON THE PRIMARY CLINICAL RECORDS. [facility] [employer] [facility]. provides no warranty or guarantee of the accuracy or completeness of information in this document.
[2023-05-11 18:07] LABS: Calprotectin, Stool 1800 ug/g (0-120)
== END | disposition home or self-care (01) ==
LOC: LABSPEC 12:03
PROVIDERS: PCP Family Medicine; Referring Provider Internal Medicine Gastroenterology; Visit Provider Internal Medicine Gastroenterology
DX: A49.8 Other bacterial infections of unspecified site (principal); K52.9 Noninfective gastroenteritis and colitis, unspecified
CPT/HCPCS: 83630; 83993; 87493

== ENCOUNTER 2023-05-14 05:24 | Emergency (ER) | payer BC, SELFPAY ==
[2023-05-14 05:25] VITALS: BP 148/113; PULSE 121; RESP 23; TEMP 36.2; O2SAT 98; BMI 47.9
--- NOTE | 2023-05-14 05:32 | EKG12_ITS ---
Test Reason : DYSRHYTHMIA Blood Pressure : / mmHG Vent. Rate : 103 BPM Atrial Rate : 103 BPM P-R Int : 162 ms QRS Dur : 080 ms QT Int : 332 ms P-R-T Axes : 065 025 063 degrees QTc Int : 434 ms Sinus tachycardia Otherwise normal ECG Confirmed by Kaushal Hess ([id number]), online content editor NENA MARIE ([id number]) on 05/14/2023 9:32:19 AM Referred By: RUTH Confirmed By:Kaushal Hess
--- NOTE | 2023-05-14 05:33 | EX.ED.DYSGE1 ---
HPI History of Present Illness Chief Complaint: Hypertension Informant: patient and EMS Narrative Narrative: Patient presents at 5:30 AM because of an elevated blood pressure primarily, at 155/93 at home. States she has felt her heart beating fast and hard for the past 6-8 hours or so. She states for the past 3 weeks, she has been having fairly significant nonbloody diarrhea. This started when she had her first Stelara injection for ulcerative colitis. She denies having any abdominal pain. She occasionally gets some chest tightness but has had none tonight. Denies any dyspnea or presyncopal symptoms. No fevers or chills. No nausea or vomiting. PFSH PFS Medical History Anemia Anxiety Arthritis History of irregular heartbeat Hx of diarrhea Kidney stones Non-smoker Post-menopausal Shortness of breath on exertion Ulcerative colitis Wears glasses Home Medications diphenhydramine HCl 25 mg capsule (Benadryl) 25 mg PO Q6H PRN allergies 05/29/21 [History Last Taken Unknown] buspirone 5 mg tablet 7.5 mg PO BID 07/25/21 [History Last Taken 08/23/21] acetaminophen 325 mg tablet (Tylenol) 325 mg PO Q6H PRN Pain 06/05/22 [History Last Taken Unknown] ustekinumab 90 mg/mL subcutaneous syringe (Stelara) 90 mg subcut Q8W #1 mL 04/08/23 [Rx Last Taken Unknown] Allergy/AdvReac Type Severity Reaction Status Date / Time ibuprofen Allergy Facial Verified 05/14/23 05:25 Swelling clindamycin AdvReac Thrush Verified 05/14/23 05:25 Family History Mother Hypertension Arthritis Anemia Brother Arthritis Grandfather Myocardial infarction Surgical History History of back surgery History of lithotripsy Hx of colonoscopy Social History household members: spouse Smoking Status: Never smoker alcohol intake: current alcohol intake frequency: other details: social substance use type: does not use what type of physical activity do you participate in: walking frequency: 1-2 times per week ROS ROS ED Constitutional Constitutional ED: Denies chills or fever(s) Eyes Eyes: Denies change in vision or diplopia ENT ENT ED: Denies rhinorrhea or sore throat Cardiovascular Cardiovascular: Reports racing heartbeat; Denies chest pain Respiratory/Chest Respiratory/Chest: Reports as per HPI and other Details: Occasional chest tightness, none tonight ; Denies cough or dyspnea Gastrointestinal Gastrointestinal: Reports diarrhea; Denies abdominal pain, melena, nausea or vomiting Genitourinary Genitourinary ED: Denies dysuria or hematuria Musculoskeletal Musculoskeletal: Denies back pain or neck pain Integumentary Denies abscess or rash Neurologic Neurologic: Denies headache(s), paresthesias or weakness Psychiatric Psychiatric: Reports anxiety; Denies suicidal thoughts EXAM Physical Exam Const Vital Signs: 05/14/23 05:25 05/14/23 05:34 Temperature 97.1 F L Temperature Source Temporal Pulse Rate 121 H Respiratory Rate 23 H Blood Pressure 148/113 H Blood Pressure Mean 124 Pulse Ox 98 Oxygen Delivery Method Room Air Room Air Positive well nourished, well developed and obese General Appearance ED: well developed and NAD Nutritional Appearance: obese HEENT Reports moist mucous membranes normocephalic and atraumatic Eyes PERRL and EOMs intact bilaterally Neck full ROM and supple Resp normal respiratory effort and clear to auscultation bilaterally Cardio regular rate, regular rhythm and no murmurs Rate: tachycardic GI non-tender and non-distended Auscultation: normoactive bowel sounds Palpation: soft Back/Spine no CVA tenderness General Back: other FROM Extremity normal to inspection General Extremety ED: Negative for edema, pulses abnormal or tenderness General Extremity: Negative for edema or pulses abnormal Neuro oriented x3, CN's II-XII intact bilaterally and no sensory deficits noted Sensorium / Orientation: awake and alert Motor Exam: strength 5/5 throughout Psych Mood & Affect: anxious Skin no rashes or lesions noted and no wounds MDM MDM MDM Narrative Medical decision making narrative: I reassured patient about her blood pressure. There is nothing about her symptoms or blood pressure measurements that constitute hypertensive emergency or other medical emergency. I have obtained a troponin including an EKG, they are both normal, her electrolytes are normal, she is not prerenal, and her blood counts are normal as well. In the meantime gave her a liter of IV fluids. Prior to this her heart rate had already come down to 103 on the EKG. after less than half of the liter of IV fluids, her heart rate is in the 80s and blood pressure is 133/64. She is asking if this could be anxiety. Certainly could be. It could have been that she was mildly dehydrated as well, I am sure she could have used the fluids. I think much less likely to be a dysrhythmia. Diarrhea could be from the Stelara as a side effect, but she is not having any pain or blood so I am less inclined to think she is having a flareup of her ulcerative colitis. She states her blood pressure is usually 120, but I discussed what emergent numbers would look like. She is unlikely to have symptoms caused by systolic blood pressure 155. She agrees with all this, we discussed the numbers, and reasons to return to the ER, she is comfortable with that plan, we are going to let her finish IV fluids prior to discharge. Lab Data Attestation: I reviewed the patient's lab results. Labs: Laboratory Results - last 24 hr 05/14/23 05:35 WBC 8.8 RBC 4.71 Hgb 12.3 Hct 41.1 MCV 87.3 MCH 26.1 L MCHC 29.9 L RDW Std Deviation 45.3 H RDW Coeff of Phil 14.2 Plt Count 379 MPV 8.0 Immature Gran % (Auto) 0.500 Neut % (Auto) 45.4 L Lymph % (Auto) 39.1 Sherman % (Auto) 10.7 H Eos % (Auto) 3.3 Baso % (Auto) 1.0 Absolute Neuts (auto) 4.0 Absolute Lymphs (auto) 3.42 Nucleated RBC % 0 Sodium 140 Potassium 3.7 Chloride 108 H Carbon Dioxide 26.0 Anion Gap 6 BUN 9 Creatinine 0.76 Estim Creat Clear Calc 126.08 Est GFR (MDRD) Af Amer 102 Est GFR (MDRD) Non-Af 84 BUN/Creatinine Ratio 11.9 Glucose 118 H Calcium 9.5 Troponin I High Sens 32 Rhythm Strip Rhythm Strip: Sinus Tach Rate: 114 Ectopy: None EKG Initial EKG: Attestation: I personally reviewed and interpreted this EKG as follows: Interpretation: No Acute Injury Pattern and Sinus Tachycardia (103) Discharge Plan Triage Chief Complaint: Hypertension ED Provider: James Hussein Dx/Rx/DC Orders Clinical Impression: Mild dehydration, Acute diarrhea, Episode of hypertension Instructions: Treating Diarrhea Prescriptions: No Action buspirone 5 mg tablet 7.5 mg PO BID diphenhydramine HCl [Benadryl] 25 mg Capsule 25 mg PO Q6H PRN (Reason: allergies) acetaminophen [Tylenol] 325 mg Tablet 325 mg PO Q6H PRN (Reason: Pain) Stelara 90 mg/mL syringe 90 mg subcut Q8W Qty: 1 5RF Rx Instructions: Infusion received 02.27.23. Injection approved through 02.01.24 Primary Care Provider: Tate Cordova Referrals: Tate Cordova MD [Primary Care Provider] - John Gregorio DO [Med Staff - Active Staff] - (Called to discuss follow-up options regarding possible side effects from Stelara) Disposition Disposition: Home, Self Care
[2023-05-14] MEDS: 0.9% Normal Saline (1000mL) 1,000 ML 1000 ML IV (05:41)
--- OUTSIDE RECORDS SUMMARY | 2023-05-14 05:44 | XMS RPT_ITS | CCD ---
Author Name Unknown Address [id number] [place] [address] Organization [facility] Care Team Providers Care [employer] Name Role Phone Tia Jalloh DO Unavailable [phone] Tia Jalloh DO Unavailable [phone] Accounting Reconciliation Clerk, System Unavailable Unavailable Shanon Garcia Unavailable Unavailable Joie Thibodeaux CNP Unavailable Unavailable Unavailable Eddi Rodas MD Primary Care Provider EDDI RODAS Primary Care Unavailable Allergies Allergy Classification Reported Allergen(s) Allergy Type Date of Onset Reaction(s) Facility (1 source) Contrast media Allergy to substance (finding) [facility] Work Phone: (2 sources) Clindamycin; Translations: [CLINDAMYCIN] Drug Allergy 6 Other: See Comments [facility] Work Phone: (2 sources) Ibuprofen; Translations: [IBUPROFEN] Drug Allergy 6 Swelling [facility] Work Phone: Medications Current Medications Medication Drug Class(es) Dates Sig (Normalized) Sig (Original) polymyxin b 94501 unt/ml / trimethoprim 1 mg/ml ophthalmic solution [...] 97.39 [degF] Kian Johnson APRN.CNP Work Phone: [facility] 02-20-2023 15:03-0500 Body weight 140.62 kg Kian Johnson APRN.CNP Work Phone: [facility] 02-20-2023 15:03-0500 Diastolic blood pressure 82 mm[Hg] Kian Johnson V[employer]LEYBALL ASSEMBLER.INTERVENTIONAL RADIOLOGY RN Work Phone: [facility] 02-20-2023 15:03-0500 Heart rate 113 /min Kian Johnson VOLLEYBALL ASSEMBLER.INTERVENTIONAL RADIOLOGY RN Work Phone: [facility] 02-20-2023 15:03-0500 Respiratory rate 18 /min Kian Johnson VOLLEYBALL ASSEMBLER.INTERVENTIONAL RADIOLOGY RN Work Phone: [facility] 02-20-2023 15:03-0500 SaO2% (BldA) [Mass fraction] 97 % Kian Johnson VOLLEYBALL ASSEMBLER.INTERVENTIONAL RADIOLOGY RN Work Phone: [facility] 02-20-2023 15:03-0500 Systolic blood pressure 138 mm[Hg] Kian Johnson VOLLEYBALL ASSEMBLER.INTERVENTIONAL RADIOLOGY RN Work Phone: [facility] 03-05-2012 14:14-0500 Body height 170.18 cm Tia [...] Provider Facility Start: 02-20-2023 End: 02-20-2023 [facility] Start: 02-20-2023 End: 02-20-2023 Patient encounter procedure Kian Johnson INTERVENTIONAL RADIOLOGY RN Work Phone: [facility] Plan of Treatment Date Care Activity Detail Author Start: 11-30-2022 Covid-19 Vaccine ( season) Covid-19 Vaccine ( season) [facility] Start: 11-30-2022 Influenza vaccination Influenza Vaccine (#1) [facility] Start: 04-01-2022 Depression Assessment Depression Assessment [facility] Start: 08-25-2017 Shingrix Vaccine (1 of 2) Shingrix Vaccine (1 of 2) [facility] Start: 08-25-2012 Cologuard (FIT-DNA) Cologuard (FIT-DNA) [facility] Start: 08-25-2012 Colonoscopy Colonoscopy [facility] Start: 08-25-2012 Colorectal Cancer Screening Colorectal Cancer Screening [facility] Start: 08-25-[address] Colonography [facility] Start: 08-25-2012 Diabetes Screening Diabetes Screening [facility] Start: 08-25-2012 Fecal Occult Blood Fecal Occult Blood [facility] Start: 08-25-2012 Lipid 1996 panel - Serum or Plasma Lipid Screening [facility] Start: 08-25-2012 Sigmoidoscopy Sigmoidoscopy [facility] Start: 02-11-2009 Glucose quantitative blood xcpt reagent strip Glucose, PP/2 Hour (27324) [facility]; [facility] Work Phone: Start: 12-03-2008 Blood count complete automated CBC (Auto) (49844) [facility]; [facility] Work Phone: Start: 12-03-2008 Assay of iron Iron (10808) [facility] Work Phone: Start: 12-03-2008 Iron binding capacity Iron Binding Capacity (TIBC) (75586) [facility]; [facility] Work Phone: Start: 12-03-2008 Assay of ferritin Ferritin (86223) [facility]; [facility] Work Phone: Start: 12-03-2008 Lipid panel LIPID PANEL (06339) [facility]; [facility] Work Phone: Start: 12-03-2008 Glucose quantitative blood xcpt reagent strip Glucose, PP/2 Hour (51455) [facility]; [facility] Work Phone: Start: 03-11-2008 Provider Instructions for Treatment Reviewed Lab [facility] Work Phone: Start: 02-25-2008 Patient Education Anemia: diagnosis and treatment [facility]; [facility] Work Phone: Start: 02-25-2008 Assay of ferritin FERRITIN (78960) [facility]; [facility] Work Phone: Start: 02-25-2008 Assay of folic acid serum FOLIC ACID SERUM (01285) [facility]; [facility] Work Phone: Start: 02-25-2008 Assay of haptoglobin quantitative HAPTOGLOBIN (55136) [facility]; [facility] Work Phone: Start: 02-25-2008 Assay of iron IRON (36113) [facility]; [facility] Work Phone: Start: 02-25-2008 Blood count complete auto&auto difrntl wbc CBC, PLATELETS & AUT DIFF (93507) [facility]; [facility] Work Phone: Start: 02-25-2008 Blood count reticulocyte automated RETICULOCYTE COUNT [facility] (14435) [facility]; [facility] Work Phone: Start: 02-25-2008 Cyanocobalamin vitamin b-12 VITAMIN B-12 (CYANOCOBALAMIN) (18017) [facility]; [facility] Work Phone: Start: 02-25-2008 Iron binding capacity IRON BINDING CAPACITY (TIBC) (73929) [facility]; [facility] Work Phone: Start: 02-25-2008 Lactate dehydrogenase ldh LDH (LD) (LACTATE DEHYDROGENASE) (05186) [facility]; [facility] Work Phone: Start: 2007 Mammography Mammogram Screening [facility] Start: 07-14-2007 Provider Instructions for Treatment Reviewed Diagnostic Tests [facility]; [facility] Work Phone: Start: 06-23-2007 Patient Education Sore throat: diagnosis and treatment [facility]; [facility] Work Phone: Start: 06-23-2007 Provider Instructions for Treatment *URI Treatment [facility]; [facility] Work Phone: Start: 06-23-2007 Immunoassay tumor antigen quantitative CA 125 (94701) [facility]; [facility] Work Phone: Start: 06-23-2007 Cul bact xcpt urine blood/stool aerobic isol BONG CULTURE-OTHER (74696) [facility]; [facility] Work Phone: Start: 03-06-2007 Provider Instructions for Treatment [facility]; [facility] Work Phone: Start: 02-28-2007 Glucose quantitative blood xcpt reagent strip Glucose, PP/2 Hour (61938) [facility]; [facility] Work Phone: Start: 02-28-2007 Lipid panel LIPID PANEL (65767) [facility] Work Phone: Start: 02-28-2007 Blood count complete automated CBC (AUTO) (35336) [facility]; [facility] Work Phone: Start: 02-28-2007 Assay of thyroid stimulating hormone tsh TSH (62138) [facility]; [facility] Work Phone: Start: 02-28-2007 Prothrombin time PT (PROTHROMBIN TIME) (02891) [facility]; [facility] Work Phone: Start: 02-28-2007 Thromboplastin time partial plasma/whole blood PTT (ACTIVATED PARTIAL THROMBOPLASTIN TIME) (22935) [facility]; [facility] Work Phone: Start: 08-25-1997 HPV Testing HPV Testing [facility] Start: 08-25-1988 Pap Testing Pap Testing [facility] Start: 08-25-1986 Urine microalbumin profile DTaP,Tdap,Td Vaccine (1 - Tdap) [facility] Start: 08-25-1985 Hepatitis C Screening Hepatitis C Screening [facility] Start: 08-25-1985 HIV Screening HIV Screening [facility] Start: 1967 Hepatitis B Vaccine (1 of 3 - 3-dose series) Hepatitis B Vaccine (1 of 3 - 3-dose series) [facility] Work Phone: [facility] Work Phone: [facility] Work Phone: Immunizations Immunization Date Immunization Notes Care Provider Fa cility 04-03-2019 influenza virus vacc ine, unspecified formulation Kian Johnson APRN.INTERVENTIONAL RADIOLOGY RN Work Phone: [facility] Payers Date Payer Category Payer Unknown 2013 Unknown [id number] Social History Date Type Detail Facility Start: 02-20-2023 Caffeine Use Caffeine Use Comprehens [facility] Work Phone: Progress note 02-20-2023 Note Date & Type Note Facility 02-20-2023 Note HNO ID: [id number] Author: Kian Johnson APRN.INTERVENTIONAL RADIOLOGY RN Service: ? Author Type: Nurse Practitioner Type: [...] UNIT-TRIMETHOPRIM 1 MG/ML EYE DROPS Kian Johnson APRN.[facility] History of Present illness Narrative 02-20-2023 Kian [...] UNIT-TRIMETHOPRIM 1 MG/ML EYE DROPS Kian Johnson APRN.INTERVENTIONAL RADIOLOGY RN documented in this encounter [facility] Evaluation note Note Date & Type Note Facility documented in this encounter [facility] Summary Purpose Family History No Family History [...] or prosecute any alcohol or drug abuse patient.[facility] Reason for Visit (unrecogniz ed section and [...] BE BASED ON THE PRIMARY CLINICAL RECORDS. [facility] [employer] [facility]. provides no warranty or guarantee of the accuracy or completeness of information in this document.
[2023-05-14 05:47] LABS: Absolute Lymphocyte Count 3.42 X10^3/uL (0.83-4.51); Basophil# 0.09 X10^3/uL; Eosinophil# 0.29 X10^3/uL; Eosinophils% 3.3 % (0-5); Hematocrit 41.1 % (37-47); Hemoglobin 12.3 g/dL (12.0-15.0); Lymphocyte # 3.42 X10^3/ul (0.83-4.51); Lymphocyte % 39.1 % (19-41); Mean Corp Hgb Conc 29.9 g/dL (32-36); Mean Corpuscular Hgb 26.1 pg (27.0-32.0); Mean Corpuscular Volume 87.3 fL (81-99); Monocyte# 0.94 X10^3/uL; Monocyte% 10.7 % (0-10); NRBC Flagged by Analyzer 0 % (0-5); Neutrophil # 3.97 X10^3/uL (2.7-7.7); Neutrophil % 45.4 % (47-70); Platelet Count 379 K/mm3 (150-450); RBC Distribution Width CV 14.2 % (11.6-14.6); RBC Distribution Width SD 45.3 fl (35.1-43.9); Red Blood Count 4.71 M/mm3 (4.2-5.4); White Blood Count 8.8 K/mm3 (4.4-11.0)
[2023-05-14 06:08] LABS: Anion Gap 6 (5-15); BUN 9 mg/dL (7-18); BUN/Creat Ratio 11.9 RATIO (10-20); Calcium,Total 9.5 mg/dL (8.5-10.1); Chloride 108 mmol/L (98-107); Creatinine, Serum 0.76 mg/dL (0.55-1.02); EST Glomerular Filtration Rate 84 mL/min (>60); Est Glom Filt Rate - Afr Amer 102 mL/min (>60); Estimated Creatinine Clearance 126.08 ml/min; Glucose 118 mg/dL (74-106); Potassium 3.7 mmol/L (3.5-5.1); Sodium Level 140 mmol/L (136-145); Troponin-I HS 32 pg/mL (3.0-54.0)
[2023-05-14 06:41] VITALS: BP 124/75; PULSE 83; RESP 16; TEMP 36.7; O2SAT 98
== END 2023-05-14 06:42 | disposition home or self-care (01) ==
PROVIDERS: Emergency Provider Emergency Medicine; PCP Family Medicine; Visit Provider Emergency Medicine
DX: E86.0 Dehydration (principal); I10 Essential (primary) hypertension; R19.7 Diarrhea, unspecified
CPT/HCPCS: 80048; 84484; 85025; 93005; 99283; J7030; A4216